=== PATIENT | male | born 1960 | race Caucasian/White ===

== ENCOUNTER 2021-02-24 15:03 | Emergency (ER) | payer MEDICAID ==
[~2021-02-24] VITALS: Ht 185.4 cm; Wt 72.6 kg
[2021-02-24] MEDS ORDERED: diphenhdrAMINE HCL 50 MG/1 ML VL ONE (15:09)
[2021-02-24 15:13] VITALS: BP 137/86
[2021-02-24] MEDS ORDERED: diphenhdrAMINE HCL 50 MG/1 ML VL IM ONE (15:15)
== END 2021-02-24 15:11 | disposition home or self-care (01) ==
LOC: ER 15:03
DX: T78.40XA Allergy, unspecified, initial encounter (principal); T50.905A Adverse effect of unspecified drugs, medicaments and biological substances, initial encounter; F17.210 Nicotine dependence, cigarettes, uncomplicated; X58.XXXA Exposure to other specified factors, initial encounter; Y92.89 Other specified places as the place of occurrence of the external cause
CPT/HCPCS: 96372; 99283; J1200

== ENCOUNTER 2021-02-24 18:40 | Emergency (ER) | payer MEDICAID ==
[~2021-02-24] VITALS: Ht 182.9 cm; Wt 83.9 kg
[2021-02-24] MEDS: LORazepam 0.5 MG TAB PO ONE (20:07)
[2021-02-24] MEDS: diphenhdrAMINE HCL 25 MG CAP PO ONE (20:07)
[2021-02-24 20:41] LABS: Basophils # (auto) 0.1 10 ^3/uL (0-0.2); Basophils % (auto) 0.8 % (0.0-2.0); Eosinophils # (auto) 0.1 10 ^3/uL (0-0.8); Eosinophils % (auto) 0.9 % (0.0-7.0); Hematocrit 32.3 % (41.0-53.0); Hemoglobin 10.3 g/dL (13.5-17.5); Lymphocytes # (auto) 2.6 10 ^3/uL (0.4-5.4); Lymphocytes % (auto) 25.3 % (10.0-50.0); Mean Corpuscular Hemoglobin 29.5 pg (28.0-32.0); Mean Corpuscular Volume 92.2 fL (80.0-100.0); Monocytes # (auto) 0.9 10 ^3/uL (0-1.3); Monocytes % (auto) 9.3 % (0.0-12.0); Neutrophils # (auto) 6.5 10 ^3/uL (1.6-8.6); Neutrophils % (auto) 63.7 % (37.0-80.0); Red Cell Distribution Width 15.1 % (11.8-14.3); White Blood Cell 10.2 10^3/uL (4.4-10.8)
[2021-02-24 20:50] LABS: Urine Bacteria NONE SEEN /hpf (None Seen); Urine Blood Negative /uL (Negative); Urine Specific Gravity 1.012 (1.001-1.035); Urine WBC 1 /hpf (0 - 3)
[2021-02-24 20:51] LABS: Alcohol, Urine < 3.0 mg/dL (0-10); Amphetamine Screen, Urine NEGATIVE (NEGATIVE); Barbiturate Scree,Urine NEGATIVE (NEGATIVE); Benzodiazephine Screen, Urine NEGATIVE (NEGATIVE); Cannabinoid Screen, Urine NEGATIVE (NEGATIVE); Cocaine Screen, Urine NEGATIVE (NEGATIVE); Opiate Scree,Urine NEGATIVE (NEGATIVE); Phencyclidine Screen, Urine NEGATIVE (NEGATIVE)
[2021-02-24 20:52] LABS: Albumin 2.8 g/dL (3.4-5.0); Calcium 8.7 mg/dL (8.5-10.1); Potassium 4.1 mmol/L (3.5-5.1)
[2021-02-24 20:54] LABS: Salicylate < 1.7 mg/dL (2.8-20.0)
[2021-02-24 20:56] LABS: Acetaminophen < 2.0 ug/mL (10-30); BUN/Creatinine Ratio 32.3; Bilirubin, Total 0.2 mg/dL (0.2-1.0); Total Protein 6.5 g/dL (6.4-8.2)
[2021-02-25 08:44] VITALS: BP 138/69
== END 2021-02-25 10:36 | disposition left against medical advice (07) ==
LOC: ER 18:40 → EDUNIT# 18:40 → EDBD 18:40 → ER 02-25 10:36
DX: R45.851 Suicidal ideations (principal); F30.9 Manic episode, unspecified; R94.31 Abnormal electrocardiogram [ECG] [EKG]; F17.210 Nicotine dependence, cigarettes, uncomplicated; Z20.822 Contact with and (suspected) exposure to COVID-19
CPT/HCPCS: 36415; 80053; 80307; 80329; 81001; 85025; 87426; 93005

== ENCOUNTER 2021-04-04 19:52 | Emergency (ER) | payer MEDICAID ==
[~2021-04-04] VITALS: Ht 185.4 cm; Wt 74.8 kg
[~2021-04-04 19:52] MED LIST: CLON0.5T PO
[2021-04-04 20:10] VITALS: BP 137/81
== END 2021-04-05 05:26 | disposition left against medical advice (07) ==
LOC: EDBD 19:52 → MERGE 20:01 → ER 20:01
DX: R45.851 Suicidal ideations (principal); R07.89 Other chest pain; F20.9 Schizophrenia, unspecified

== ENCOUNTER 2021-04-05 20:01 | Emergency (ER) | payer MEDICAID ==
[2021-04-05 20:01] VITALS: BP 146/86
== END 2021-04-06 06:03 | disposition home or self-care (01) ==
LOC: EDBD 20:01 → ER 20:06 → MERGE 20:06 → ER 04-06 06:03
DX: F20.9 Schizophrenia, unspecified (principal)

== ENCOUNTER 2021-04-10 00:45 | Emergency (ER) | payer MEDICAID ==
[~2021-04-10] VITALS: Ht 180.3 cm; Wt 72.6 kg
[2021-04-10 01:02] VITALS: BP 127/77
== END 2021-04-10 01:10 | disposition left against medical advice (07) ==
LOC: EDBD 00:45 → ER 00:45
DX: R45.851 Suicidal ideations (principal); Z53.21 Procedure and treatment not carried out due to patient leaving prior to being seen by health care provider

== ENCOUNTER 2021-04-11 21:32 | Emergency (ER) | payer MEDICAID ==
[~2021-04-11] VITALS: Ht 180.3 cm; Wt 77.1 kg
[2021-04-11 21:32] VITALS: BP 110/65
== END 2021-04-12 01:24 | disposition left against medical advice (07) ==
LOC: ER 21:33
DX: R45.851 Suicidal ideations (principal); Z53.29 Procedure and treatment not carried out because of patient's decision for other reasons

== ENCOUNTER 2021-04-24 22:28 | Emergency (ER) | payer MEDICAID ==
[~2021-04-24] VITALS: Ht 172.7 cm; Wt 72.6 kg
[2021-04-24 22:57] VITALS: BP 149/50
== END 2021-04-25 03:00 | disposition left against medical advice (07) ==
LOC: EDBD 22:28 → ER 22:30
DX: R45.851 Suicidal ideations (principal); Z53.21 Procedure and treatment not carried out due to patient leaving prior to being seen by health care provider

== ENCOUNTER 2021-06-03 03:57 | Emergency (ER) | payer MEDICAID ==
[~2021-06-03] VITALS: Ht 175.3 cm; Wt 63.5 kg
[2021-06-03 06:26] LABS: Basophils # (auto) 0.1 10 ^3/uL (0-0.2); Basophils % (auto) 1.5 % (0.0-2.0); Eosinophils # (auto) 0.1 10 ^3/uL (0-0.8); Eosinophils % (auto) 2.3 % (0.0-7.0); Hematocrit 30.5 % (41.0-53.0); Hemoglobin 9.9 g/dL (13.5-17.5); Lymphocytes # (auto) 1.7 10 ^3/uL (0.4-5.4); Lymphocytes % (auto) 31.1 % (10.0-50.0); Mean Corpuscular Hemoglobin 28.1 pg (28.0-32.0); Mean Corpuscular Hgb Conc. 32.3 g/dL (32.0-36.0); Monocytes # (auto) 0.6 10 ^3/uL (0-1.3); Monocytes % (auto) 11.8 % (0.0-12.0); Neutrophils # (auto) 2.9 10 ^3/uL (1.6-8.6); Neutrophils % (auto) 53.3 % (37.0-80.0); Nucleated Red Blood Cells % 0.1 %; Red Blood Cells 3.51 10^6/uL (4.5-5.90); Red Cell Distribution Width 17.3 % (11.8-14.3); White Blood Cell 5.4 10^3/uL (4.4-10.8)
[2021-06-03 06:29] LABS: Albumin 3.3 g/dL (3.4-5.0); BUN/Creatinine Ratio 21.7; Calcium 8.9 mg/dL (8.5-10.1); Potassium 3.8 mmol/L (3.5-5.1)
[2021-06-03 06:30] LABS: Acetaminophen < 2.0 ug/mL (10-30); Salicylate < 1.7 mg/dL (2.8-20.0)
[2021-06-03 06:31] LABS: Bilirubin, Total 0.6 mg/dL (0.2-1.0); Total Protein 6.7 g/dL (6.4-8.2)
[2021-06-03 08:29] LABS: Amphetamine Screen, Urine POSITIVE (NEGATIVE); Barbiturate Scree,Urine NEGATIVE (NEGATIVE); Benzodiazephine Screen, Urine NEGATIVE (NEGATIVE); Cannabinoid Screen, Urine NEGATIVE (NEGATIVE); Cocaine Screen, Urine NEGATIVE (NEGATIVE); Opiate Scree,Urine NEGATIVE (NEGATIVE); Phencyclidine Screen, Urine NEGATIVE (NEGATIVE)
[2021-06-03 08:49] LABS: Urine Bacteria NONE SEEN /hpf (None Seen); Urine Blood Negative /uL (Negative); Urine Specific Gravity 1.023 (1.001-1.035); Urine WBC 1 /hpf (0 - 3)
[2021-06-04 08:00] VITALS: BP 116/47
== END 2021-06-04 11:27 | disposition short-term general hospital (02) ==
LOC: EDBD 03:57 → ER 03:57
DX: R45.851 Suicidal ideations (principal); F12.10 Cannabis abuse, uncomplicated; R68.84 Jaw pain; F17.210 Nicotine dependence, cigarettes, uncomplicated; Z59.00 Homelessness unspecified
CPT/HCPCS: 36415; 70486; 80053; 80307; 80320; 80329; 81001; 85025; 85652

== ENCOUNTER 2021-06-04 13:28 | Emergency (ER) | payer MEDICAID ==
[~2021-06-04] VITALS: Ht 185.4 cm; Wt 63.5 kg
[2021-06-04 13:30] VITALS: BP 158/91
== END 2021-06-04 14:45 | disposition left against medical advice (07) ==
LOC: ER 13:28
DX: R51.9 Headache, unspecified (principal); Z53.21 Procedure and treatment not carried out due to patient leaving prior to being seen by health care provider

== ENCOUNTER 2021-06-04 18:53 | Emergency (ER) | payer MEDICAID ==
[~2021-06-04] VITALS: Ht 177.8 cm; Wt 81.6 kg
[2021-06-04 18:56] VITALS: BP 186/78
== END 2021-06-05 02:28 | disposition left against medical advice (07) ==
LOC: EDBD 18:53 → ER 18:55
DX: R25.9 Unspecified abnormal involuntary movements (principal); F17.210 Nicotine dependence, cigarettes, uncomplicated; Z79.899 Other long term (current) drug therapy

== ENCOUNTER 2022-02-26 19:15 | Emergency (ER) | payer MEDICAID ==
[~2022-02-26] VITALS: Ht 182.9 cm; Wt 63.5 kg
[2022-02-26 19:38] VITALS: BP 144/70
== END 2022-02-26 19:19 | disposition left against medical advice (07) ==
LOC: EDBD 19:15 → ER 19:19
DX: R53.1 Weakness (principal); F17.210 Nicotine dependence, cigarettes, uncomplicated
CPT/HCPCS: 80053; 81001; 83735; 83880; 84484; 85730; 93005

== ENCOUNTER 2022-03-03 08:51 | Emergency (ER) | payer MEDICAID ==
[~2022-03-03] VITALS: Ht 182.9 cm; Wt 68.1 kg
[2022-03-03 09:30] VITALS: BP 116/63
== END 2022-03-03 16:16 | disposition home or self-care (01) ==
LOC: ER 08:51 → EDBD 08:51 → ER 16:16
DX: R07.89 Other chest pain (principal); F17.210 Nicotine dependence, cigarettes, uncomplicated; Z79.899 Other long term (current) drug therapy
CPT/HCPCS: 93005

== ENCOUNTER 2022-03-17 13:42 | Emergency (ER) | payer MEDICAID ==
[~2022-03-17] VITALS: Ht 185.4 cm; Wt 72.0 kg
[2022-03-17] MEDS ORDERED: ALBUTEROL SULF 2.5 MG/0.5ML(0.5%) NEB SOLN NEB ONE (14:45)
[2022-03-17] MEDS ORDERED: IPRATROPIUM BROM 0.5 MG/2.5ML INH SOL NEB ONE (14:45)
[2022-03-17] MEDS ORDERED: methylPREDNISolone SOD SUCC 125 MG/2 ML VL IM ONE (14:45)
[2022-03-17 16:11] VITALS: BP 145/95
== END 2022-03-17 16:13 | disposition home or self-care (01) ==
LOC: EDUNIT# 13:42 → EDBD 13:42 → ER 13:42
DX: F41.9 Anxiety disorder, unspecified (principal); F17.210 Nicotine dependence, cigarettes, uncomplicated
CPT/HCPCS: 71045; 93005; 94640; 96372; 99283; J2930; J7644

== ENCOUNTER 2022-04-30 17:21 | Emergency (ER) | payer MEDICAID ==
[~2022-04-30] VITALS: Ht 170.2 cm; Wt 73.0 kg
[2022-04-30 19:07] LABS: Salicylate < 1.7 mg/dL (2.8-20.0)
[2022-04-30 19:17] LABS: Acetaminophen < 2.0 ug/mL (10-30)
[2022-04-30 19:46] LABS: Alcohol, Urine < 3.0 mg/dL (0-10); Amphetamine Screen, Urine POSITIVE (NEGATIVE); Barbiturate Scree,Urine NEGATIVE (NEGATIVE); Benzodiazephine Screen, Urine NEGATIVE (NEGATIVE); Cannabinoid Screen, Urine NEGATIVE (NEGATIVE); Cocaine Screen, Urine NEGATIVE (NEGATIVE)
[2022-04-30 19:55] LABS: Opiate Scree,Urine NEGATIVE (NEGATIVE); Phencyclidine Screen, Urine NEGATIVE (NEGATIVE)
[2022-05-01] MEDS ORDERED: OLANZapine 5 MG TAB PO SCH (22:00)
[2022-05-02 08:00] VITALS: BP 147/61
== END 2022-05-02 20:42 | disposition home or self-care (01) ==
LOC: EDUNIT# 17:21 → ER 17:21 → EDBD 17:21 → ER 05-02 20:35
DX: R45.851 Suicidal ideations (principal); F20.9 Schizophrenia, unspecified; F17.210 Nicotine dependence, cigarettes, uncomplicated; Z59.48 Other specified lack of adequate food
CPT/HCPCS: 36415; 80307; 80320; 80329

== ENCOUNTER 2022-05-13 13:15 | Emergency (ER) | payer MEDICAID ==
[~2022-05-13] VITALS: Ht 177.8 cm; Wt 70.0 kg
[2022-05-13 14:45] VITALS: BP 153/90
== END 2022-05-13 15:24 | disposition left against medical advice (07) ==
LOC: EDBD 13:15 → ER 13:15
DX: R06.02 Shortness of breath (principal); Z53.21 Procedure and treatment not carried out due to patient leaving prior to being seen by health care provider

== ENCOUNTER 2022-05-13 18:22 | Emergency (ER) | payer MEDICAID ==
[~2022-05-13] VITALS: Ht 185.4 cm; Wt 68.0 kg
[2022-05-13 19:50] LABS: Basophils # (auto) 0.1 10 ^3/uL (0-0.2); Basophils % (auto) 0.8 % (0.0-2.0); Eosinophils # (auto) 0.1 10 ^3/uL (0-0.8); Eosinophils % (auto) 1.3 % (0.0-7.0); Hematocrit 31.1 % (41.0-53.0); Hemoglobin 10.2 g/dL (13.5-17.5); Mean Corpuscular Hemoglobin 29.6 pg (28.0-32.0); Mean Corpuscular Hgb Conc. 32.7 g/dL (32.0-36.0); Mean Corpuscular Volume 90.5 fL (80.0-100.0); Monocytes # (auto) 0.9 10 ^3/uL (0-1.3); Monocytes % (auto) 12.4 % (0.0-12.0); Neutrophils # (auto) 4.6 10 ^3/uL (1.6-8.6); Neutrophils % (auto) 59.5 % (37.0-80.0); Nucleated Red Blood Cells % 0.1 %; Red Blood Cells 3.44 10^6/uL (4.5-5.90); White Blood Cell 7.7 10^3/uL (4.4-10.8)
[2022-05-13 19:56] LABS: Red Cell Distribution Width 22.2 % (11.8-14.3)
[2022-05-13 19:58] LABS: INR 0.95 (0.9-1.15); Partial Thromboplastin Time 24.9 sec (24.6-33.4)
[2022-05-13 20:05] LABS: Albumin 3.6 g/dL (3.4-5.0); BUN/Creatinine Ratio 25.5; Calcium 9.8 mg/dL (8.5-10.1); Potassium 4.1 mmol/L (3.5-5.1)
[2022-05-13 20:06] LABS: Salicylate < 1.7 mg/dL (2.8-20.0)
[2022-05-13 20:08] LABS: Bilirubin, Total 0.3 mg/dL (0.2-1.0); Total Protein 7.7 g/dL (6.4-8.2)
[2022-05-13 20:33] LABS: Acetaminophen < 2.0 ug/mL (10-30)
[2022-05-14] MEDS ORDERED: NICOTINE 21MG/24 HR TOPICAL PATCH TD ONE (00:45)
[2022-05-14 08:25] VITALS: BP 135/68
[2022-05-14 08:28] LABS: Urine Bacteria NONE SEEN /hpf (None Seen); Urine Blood Negative /uL (Negative); Urine Specific Gravity 1.022 (1.001-1.035); Urine WBC 2 /hpf (0 - 3)
[2022-05-14 08:32] LABS: Alcohol, Urine < 3.0 mg/dL (0-10); Amphetamine Screen, Urine POSITIVE (NEGATIVE); Barbiturate Scree,Urine NEGATIVE (NEGATIVE); Benzodiazephine Screen, Urine NEGATIVE (NEGATIVE); Cannabinoid Screen, Urine NEGATIVE (NEGATIVE); Cocaine Screen, Urine NEGATIVE (NEGATIVE); Phencyclidine Screen, Urine NEGATIVE (NEGATIVE)
[2022-05-14 08:40] LABS: Opiate Scree,Urine NEGATIVE (NEGATIVE)
== END 2022-05-14 15:56 | disposition home or self-care (01) ==
LOC: EDBD 18:22 → ER 18:22
DX: R45.851 Suicidal ideations (principal); F17.210 Nicotine dependence, cigarettes, uncomplicated; F20.9 Schizophrenia, unspecified; Z20.822 Contact with and (suspected) exposure to COVID-19
CPT/HCPCS: 36415; 71045; 80053; 80307; 80320; 80329; 81001; 83880; 84484; 85025; 85379; 85610; 85730; 87426; 93005

== ENCOUNTER 2022-05-14 18:09 | Emergency (ER) | payer MEDICAID ==
[~2022-05-14] VITALS: Ht 170.2 cm; Wt 65.0 kg
[2022-05-14 18:09] VITALS: BP 117/88
[2022-05-14 19:11] LABS: Basophils # (auto) 0.2 10 ^3/uL (0-0.2); Basophils % (auto) 2.5 % (0.0-2.0); Eosinophils # (auto) 0.1 10 ^3/uL (0-0.8); Eosinophils % (auto) 1.8 % (0.0-7.0); Hematocrit 31.8 % (41.0-53.0); Lymphocytes # (auto) 2.3 10 ^3/uL (0.4-5.4); Mean Corpuscular Hemoglobin 29.4 pg (28.0-32.0); Mean Corpuscular Hgb Conc. 31.5 g/dL (32.0-36.0); Mean Corpuscular Volume 93.3 fL (80.0-100.0); Monocytes # (auto) 0.8 10 ^3/uL (0-1.3); Monocytes % (auto) 10.6 % (0.0-12.0); Neutrophils # (auto) 4.2 10 ^3/uL (1.6-8.6); Neutrophils % (auto) 55.1 % (37.0-80.0); Nucleated Red Blood Cells % 0.1 %; Red Blood Cells 3.41 10^6/uL (4.5-5.90); White Blood Cell 7.7 10^3/uL (4.4-10.8)
[2022-05-14 19:19] LABS: Red Cell Distribution Width 22.7 % (11.8-14.3)
[2022-05-14 19:26] LABS: Potassium 4.6 mmol/L (3.5-5.1)
[2022-05-14 19:33] LABS: Albumin 3.5 g/dL (3.4-5.0); BUN/Creatinine Ratio 30.6; Bilirubin, Total 0.3 mg/dL (0.2-1.0); Total Protein 6.9 g/dL (6.4-8.2)
[2022-05-15] MEDS ORDERED: HYDROcodone-ACET 5/325MG TAB PO ONE (03:45)
== END 2022-05-15 05:24 | disposition home or self-care (01) ==
LOC: EDUNIT# 18:09 → ER 18:09 → EDBD 18:09 → ER 05-15 05:24
DX: R07.89 Other chest pain (principal); F41.9 Anxiety disorder, unspecified; F32.9 Major depressive disorder, single episode, unspecified; F17.210 Nicotine dependence, cigarettes, uncomplicated; F15.90 Other stimulant use, unspecified, uncomplicated; Z59.00 Homelessness unspecified
CPT/HCPCS: 36415; 80053; 84484; 85025; 93005

== ENCOUNTER 2022-05-15 14:43 | Emergency (ER) | payer MEDICAID | END 2022-05-15 15:20 | disposition left against medical advice (07) | LOC: ER 14:43 | DX: Z00.8 Encounter for other general examination (principal); Z53.21 Procedure and treatment not carried out due to patient leaving prior to being seen by health care provider ==

== ENCOUNTER 2022-05-15 15:46 | Emergency (ER) | payer MEDICAID ==
[~2022-05-15] VITALS: Ht 172.7 cm; Wt 72.0 kg
[2022-05-15 16:48] LABS: Salicylate < 1.7 mg/dL (2.8-20.0)
[2022-05-15 16:49] LABS: Acetaminophen < 2.0 ug/mL (10-30)
[2022-05-15 17:48] LABS: Alcohol, Urine < 3.0 mg/dL (0-10); Amphetamine Screen, Urine POSITIVE (NEGATIVE); Barbiturate Scree,Urine NEGATIVE (NEGATIVE); Benzodiazephine Screen, Urine NEGATIVE (NEGATIVE); Cannabinoid Screen, Urine NEGATIVE (NEGATIVE); Cocaine Screen, Urine NEGATIVE (NEGATIVE)
[2022-05-15 17:56] LABS: Opiate Scree,Urine NEGATIVE (NEGATIVE); Phencyclidine Screen, Urine NEGATIVE (NEGATIVE)
[2022-05-15] MEDS ORDERED: OLANZapine 5 MG TAB PO SCH (22:00)
[2022-05-16 12:30] VITALS: BP 154/90
== END 2022-05-16 12:35 | disposition short-term general hospital (02) ==
LOC: EDBD 15:46 → ER 15:46
DX: F20.9 Schizophrenia, unspecified (principal); F15.10 Other stimulant abuse, uncomplicated; F17.210 Nicotine dependence, cigarettes, uncomplicated; F41.9 Anxiety disorder, unspecified; F32.9 Major depressive disorder, single episode, unspecified; Z59.00 Homelessness unspecified; Z79.899 Other long term (current) drug therapy
CPT/HCPCS: 36415; 80307; 80320; 80329

== ENCOUNTER 2022-05-27 15:57 | Emergency (ER) | payer MEDICAID ==
[~2022-05-27] VITALS: Ht 185.4 cm; Wt 72.8 kg
[2022-05-27] MEDS ORDERED: DexAMETHasone SOD PHOS 4 MG/1ML SDV INJ IM ONE (17:30)
[2022-05-27 23:03] VITALS: BP 158/61
== END 2022-05-27 18:05 | disposition home or self-care (01) ==
LOC: EDBD 15:57 → ER 16:02
DX: K14.8 Other diseases of tongue (principal); F17.210 Nicotine dependence, cigarettes, uncomplicated; Z59.00 Homelessness unspecified; Z79.899 Other long term (current) drug therapy

== ENCOUNTER 2022-06-21 17:17 | Emergency (ER) | payer MEDICAID ==
[~2022-06-21] VITALS: Ht 185.4 cm; Wt 63.0 kg
[2022-06-21 18:31] LABS: Basophils # (auto) 0.1 10 ^3/uL (0-0.2); Basophils % (auto) 0.9 % (0.0-2.0); Eosinophils # (auto) 0.1 10 ^3/uL (0-0.8); Eosinophils % (auto) 1.6 % (0.0-7.0); Hematocrit 34.6 % (41.0-53.0); Hemoglobin 11.4 g/dL (13.5-17.5); Lymphocytes # (auto) 2.3 10 ^3/uL (0.4-5.4); Lymphocytes % (auto) 28.6 % (10.0-50.0); Mean Corpuscular Hemoglobin 28.6 pg (28.0-32.0); Mean Corpuscular Hgb Conc. 32.8 g/dL (32.0-36.0); Mean Corpuscular Volume 87.3 fL (80.0-100.0); Monocytes # (auto) 0.8 10 ^3/uL (0-1.3); Monocytes % (auto) 9.6 % (0.0-12.0); Neutrophils # (auto) 4.8 10 ^3/uL (1.6-8.6); Neutrophils % (auto) 59.3 % (37.0-80.0); Nucleated Red Blood Cells % 0.1 %; Red Blood Cells 3.97 10^6/uL (4.5-5.90); White Blood Cell 8.1 10^3/uL (4.4-10.8)
[2022-06-21 18:34] LABS: Red Cell Distribution Width 20.5 % (11.8-14.3)
[2022-06-21 18:50] LABS: Albumin 3.3 g/dL (3.4-5.0); Anion Gap 3 (5-15); Blood Urea Nitrogen 22 mg/dL (7-18); Calcium 9.4 mg/dL (8.5-10.1); Carbon Dioxide 29 mmol/L (21-32); Chloride 103 mmol/L (98-107); Glucose 107 mg/dL (74-106); Potassium 3.7 mmol/L (3.5-5.1); Sodium 135 mmol/L (136-145)
[2022-06-21 18:56] LABS: Alanine Aminotransferase 22 U/L (16-61); Alkaline Phosphatase 68 U/L (45-117); Aspartate Aminotransferase 18 U/L (15-37); Bilirubin, Total 0.3 mg/dL (0.2-1.0); Blood Alcohol < 3.0 mg/dL (0-5); GFR African American 92 mL/min; GFR Non-African American 76 mL/min; Total Protein 7.7 g/dL (6.4-8.2)
[2022-06-21 19:09] LABS: Urine Bacteria NONE SEEN /hpf (None Seen); Urine Blood Negative /uL (Negative); Urine Specific Gravity 1.015 (1.001-1.035); Urine WBC <1 /hpf (0 - 3)
[2022-06-21 19:27] LABS: Alcohol, Urine < 3.0 mg/dL (0-10); Barbiturate Scree,Urine NEGATIVE (NEGATIVE); Cannabinoid Screen, Urine NEGATIVE (NEGATIVE); Cocaine Screen, Urine NEGATIVE (NEGATIVE); Opiate Scree,Urine NEGATIVE (NEGATIVE); Phencyclidine Screen, Urine NEGATIVE (NEGATIVE)
[2022-06-21 19:34] LABS: Amphetamine Screen, Urine POSITIVE (NEGATIVE); Benzodiazephine Screen, Urine NEGATIVE (NEGATIVE)
[2022-06-22] MEDS ORDERED: OLANZapine 5 MG TAB PO ONE (18:00)
[2022-06-23 14:29] VITALS: BP 133/68
== END 2022-06-23 16:00 | disposition short-term general hospital (02) ==
LOC: ER 17:17
DX: R45.851 Suicidal ideations (principal); F20.9 Schizophrenia, unspecified; F41.9 Anxiety disorder, unspecified; F32.9 Major depressive disorder, single episode, unspecified; F12.10 Cannabis abuse, uncomplicated; F15.10 Other stimulant abuse, uncomplicated; Z59.00 Homelessness unspecified
CPT/HCPCS: 36415; 80053; 80307; 80320; 81001; 85025

== ENCOUNTER 2023-02-09 11:25 | Emergency (ER) | payer MEDICAID ==
[~2023-02-09] VITALS: Ht 185.4 cm; Wt 61.0 kg
[~2023-02-09 11:25] MED LIST changes: +CLON-1003 PO; -CLON0.5T PO
[2023-02-09 11:35] VITALS: BP 110/76; PULSE 108; RESP 18; TEMP 97.9; O2SAT 96
[2023-02-09] MEDS ORDERED: cefTRIAXone SOD 1,000 MG VL IM ONE (14:00)
[2023-02-09] MEDS ORDERED: methylPREDNISolone SOD SUCC 125 MG/2 ML VL IM ONE (14:00)
[2023-02-09] MEDS ORDERED: METH4PAK PO (14:17)
[2023-02-09] MEDS ORDERED: CEPH500C PO (14:17)
== END 2023-02-09 14:36 | disposition home or self-care (01) ==
LOC: ER 11:25
DX: J03.90 Acute tonsillitis, unspecified (principal); F17.210 Nicotine dependence, cigarettes, uncomplicated; F15.10 Other stimulant abuse, uncomplicated; Z59.00 Homelessness unspecified
CPT/HCPCS: 96372; 99284; J0696; J2930

== ENCOUNTER 2023-08-10 05:25 | Emergency (ER) | payer MEDICAID ==
[~2023-08-10] VITALS: Ht 177.8 cm; Wt 70.0 kg
[~2023-08-10 05:25] MED LIST changes: +CEPH500C PO; +METH4PAK PO
[2023-08-10 05:29] VITALS: BP 170/89; RESP 18; TEMP 98.1; O2SAT 98
[2023-08-10 05:30] VITALS: PULSE 87
[2023-08-10] MEDS: methylPREDNISolone SOD SUCC 125 MG/2 ML VL IM ONE (06:49)
== END 2023-08-10 07:08 | disposition home or self-care (01) ==
LOC: EDBD 05:25 → ER 05:25 → EDUNIT# 05:25 → ER 07:07
DX: K13.79 Other lesions of oral mucosa (principal); R22.0 Localized swelling, mass and lump, head; F41.9 Anxiety disorder, unspecified; F32.9 Major depressive disorder, single episode, unspecified; F20.9 Schizophrenia, unspecified; F17.210 Nicotine dependence, cigarettes, uncomplicated; F15.90 Other stimulant use, unspecified, uncomplicated; Z59.00 Homelessness unspecified; Z79.899 Other long term (current) drug therapy
CPT/HCPCS: 93005; 96372; 99283; J2919

== ENCOUNTER 2023-08-24 22:18 | Emergency (ER) | payer MEDICAID ==
[~2023-08-24] VITALS: Ht 180.3 cm; Wt 90.0 kg
[2023-08-24 22:21] VITALS: BP 131/85
[2023-08-24] MEDS: DexAMETHasone SOD PHOS 10MG/1ML VIAL INJ IM ONE (22:56)
[2023-08-24 23:03] VITALS: PULSE 98; RESP 16; O2SAT 96
== END 2023-08-24 23:04 | disposition home or self-care (01) ==
LOC: ER 22:18 → EDBD 22:18 → ER 23:04
DX: K14.8 Other diseases of tongue (principal)
CPT/HCPCS: 96372; 99283; J1100

== ENCOUNTER 2023-09-01 00:32 | Emergency (ER) | payer MEDICAID ==
[~2023-09-01] VITALS: Ht 165.1 cm; Wt 55.0 kg
[2023-09-01 01:06] LABS: Basophils # (auto) 0.1 10 ^3/uL (0-0.2); Basophils % (auto) 1.1 % (0.0-2.0); Eosinophils # (auto) 0.2 10 ^3/uL (0-0.8); Eosinophils % (auto) 1.6 % (0.0-7.0); Hematocrit 34.3 % (41.0-53.0); Lymphocytes # (auto) 3.1 10 ^3/uL (0.4-5.4); Lymphocytes % (auto) 22.8 % (10.0-50.0); Mean Corpuscular Hemoglobin 28.8 pg (28.0-32.0); Mean Corpuscular Volume 89.8 fL (80.0-100.0); Monocytes % (auto) 14.3 % (0.0-12.0); Neutrophils # (auto) 8.2 10 ^3/uL (1.6-8.6); Neutrophils % (auto) 60.2 % (37.0-80.0); Red Blood Cells 3.81 10^6/uL (4.5-5.90); Red Cell Distribution Width 19.6 % (11.8-14.3); White Blood Cell 13.7 10^3/uL (4.4-10.8)
[2023-09-01 01:13] LABS: Chloride 107 mmol/L (98-107); Potassium 3.8 mmol/L (3.5-5.1); Sodium 140 mmol/L (136-145)
[2023-09-01 01:14] LABS: Anion Gap 6 (5-15); Calcium 10.1 mg/dL (8.7-10.4); Carbon Dioxide 27 mmol/L (20-30)
[2023-09-01 01:19] LABS: BUN/Creatinine Ratio 14.7 (10.0-20.0); Blood Urea Nitrogen 19 mg/dL (9-23); Glucose 109 mg/dL (74-106)
[2023-09-01 01:21] LABS: Acetaminophen < 2.0 UG/ML (10.0-20.0)
[2023-09-01 01:32] LABS: Salicylate < 3.0 mg/dL (2.8-20.0)
[2023-09-01 02:56] VITALS: PULSE 82; RESP 18; O2SAT 99
[2023-09-01 09:59] VITALS: BP 109/65; RESP 18; TEMP 98.8; O2SAT 97
== END 2023-09-01 10:48 | disposition home or self-care (01) ==
LOC: ER 00:32 → EDBD 00:32 → ER 10:48
DX: R45.851 Suicidal ideations (principal); F41.9 Anxiety disorder, unspecified; F32.A Depression, unspecified; F20.9 Schizophrenia, unspecified; F17.210 Nicotine dependence, cigarettes, uncomplicated; F15.10 Other stimulant abuse, uncomplicated; Z59.00 Homelessness unspecified
CPT/HCPCS: 36415; 80048; 80320; 80329; 85025

== ENCOUNTER 2023-10-27 07:20 | Emergency (ER) | payer MEDICAID ==
[~2023-10-27] VITALS: Ht 182.9 cm; Wt 61.4 kg
[2023-10-27 08:11] VITALS: BP 150/84; PULSE 84; RESP 17; TEMP 97.5; O2SAT 98
[2023-10-27] MEDS: diphenhdrAMINE HCL 50 MG/1 ML VL IM ONE (08:29)
[2023-10-27] MEDS: methylPREDNISolone SOD SUCC 125 MG/2 ML VL IM ONE (08:29)
== END 2023-10-27 08:36 | disposition home or self-care (01) ==
LOC: EDBD 07:20 → EDUNIT# 07:20 → ER 07:20
DX: R25.9 Unspecified abnormal involuntary movements (principal); F41.9 Anxiety disorder, unspecified; F32.9 Major depressive disorder, single episode, unspecified; F20.9 Schizophrenia, unspecified; F17.210 Nicotine dependence, cigarettes, uncomplicated; F15.90 Other stimulant use, unspecified, uncomplicated; Z59.00 Homelessness unspecified; Z79.899 Other long term (current) drug therapy
CPT/HCPCS: 96372; 99284; J1200; J2919

== ENCOUNTER 2023-10-27 22:04 | Emergency (ER) | payer MEDICAID ==
[~2023-10-27] VITALS: Ht 185.4 cm; Wt 77.2 kg
[2023-10-27 22:15] VITALS: BP 140/72; PULSE 96; RESP 18; O2SAT 97
[2023-10-28] MEDS: KETOROLAC TROMETH 30 MG/ML 1ML VIAL IM ONE (00:08)
[2023-10-28] MEDS: DexAMETHasone SOD PHOS 10MG/1ML VIAL INJ IM ONE (00:09)
== END 2023-10-28 00:27 | disposition home or self-care (01) ==
LOC: EDBD 22:04 → ER 22:04
DX: G24.01 Drug induced subacute dyskinesia (principal); F17.210 Nicotine dependence, cigarettes, uncomplicated; F15.10 Other stimulant abuse, uncomplicated; F20.9 Schizophrenia, unspecified; F41.9 Anxiety disorder, unspecified; F32.9 Major depressive disorder, single episode, unspecified; Z59.00 Homelessness unspecified
CPT/HCPCS: 96372; 99284; J1100; J1885

== ENCOUNTER 2024-05-02 20:56 | Inpatient (IN) | payer MEDICAID ==
[~2024-05-02] VITALS: Ht 185.4 cm; Wt 50.7 kg
--- NOTE | 2024-05-02 21:43 | ED.PDOC ---
History of Present Illness HPI Comments 63-year-old male came to emergency room with granddaughter for wound check. Patient is homeless, and has history of schizophrenia, suicide ideations, and methamphetamine abuse. Patient accompanied by grand daughter, who claims that she takes care of the patient, despite the patient wandering off all the time. She last saw the patient at [facility], and was surprised why the patient had a g-tube inserted. Patient pulled out the g-tube earlier and patient was brought to [facility] however they said they couldn't take care of the patients issues with the g-tube and was advised to go seek help somewhere else. Both granddaughter and patient are very poor historians Chief Complaint: Wound check Time Seen by MD: 21:42 Primary Care Provider: NONE Reviewed Notes: Nurses Notes Allergies: Coded Allergies: NO KNOWN ALLERGIES (Unverified , 02/24/21) Home Meds Active Scripts Methylprednisolone (Medrol Dosepak) 4 Mg Jarrell, 4 MG PO UD, #21 TAB UAD Prov:TRINIDAD ALICEA 08/10/23 Cephalexin Monohydrate (Cephalexin) 500 Mg Cap, 1 CAP PO TID, #21 CAP Prov:TRINIDAD ALICEA 02/09/23 Reported Medications Clonazepam (Klonopin) 0.5 Mg Tab, 1 TAB PO DAILY, #30 TAB 12/25/13 Information Source: Patient, Relative Mode of Arrival: Wheelchair Severity: Moderate Timing: Hours Duration: Since onset Past Medical History PAST MEDICAL HISTORY: Anxiety, Depression, Schizophrenia Surgical History: Denies all surgeries Family History Family History: Reviewed,noncontributory to illness Social History Smoker: Cigarettes Alcohol: Occasionally Drugs: Methamphetamine Lives In: Homeless Constitutional: denies: chills, diaphoresis, fatigue, fever, malaise, sweats, weakness, others EENTM: denies: blurred vision, double vision, ear bleeding, ear discharge, ear drainage, ear pain, ear ringing, eye pain, eye redness, hearing loss, mouth pa in, mouth swelling, nasal discharge, nose bleeding, nose congestion, nose pain, photophobia, tearing, throat pain, throat swelling, voice changes, others Respiratory: denies: cough, hemoptysis, orthopnea, SOB at rest, shortness of breath, SOB with excertion, stridor, wheezing, others Cardiovascular: denies: chest pain, dizzy spells, diaphoresis, Dyspnea on exertion, edema, irregular heart beat, left arm pain, lightheadedness, palpitations, PND, syncope, others Gastrointestinal: denies: abdomen distended, abdominal pain, blood streaked bowels, constipated, diarrhea, dysphagia, difficulty swallowing, hematemesis, melena, nausea, poor appetite, poor fluid intake, rectal bleeding, rectal pain, vomiting, others Genitourinary: denies: burning, dysuria, flank pain, frequency, hematuria, incontinence, penile discharge, penile sore, pain, testicle pain, testicle swelling, urgency, others Neurological: denies: dizziness, fainting, headache, left sided numbness, left sided weakness, numbness, paresthesia, pre-existing deficit, right sided numbness, right sided weakness, seizure, speech problems, tingling, tremors, weakness, others Musculoskeletal: denies: back pain, gout, joint pain, joint swelling, muscle pain, muscle stiffness, neck pain, others Integumetry: denies: bruises, change in color, change in hair/nails, dryness, laceration, lesions, lumps, rash, wounds, others Allergic/Immunocompromised: denies: Difficulty Healing, Frequent Infections, Hives, Itching, others Hematologic/Lymphatic: denies: anemia, blood clots, easy bleeding, easy bruising, swollen glands, others Endocrine: denies: excessive hunger, excessive sweating, excessive thirst, excessive urination, flushing, intolerance to cold, intolerance to heat, unexplained weight gain, unexplained weight loss, others Psychiatric: denies: anxiety, bipolar disorder, depression, hopeless, panic disorder, schizophrenia, sleepless, suicidal, others Physical Exam General Appearance: No Apparent Distress, Normal HEENT: Normal ENT Inspection, Pharynx Normal, TMs Normal Neck: Full Range of Motion, Non-Tender, Normal, Normal Inspection Respiratory: Chest Non-Tender, Lungs Clear, No Accessory Muscle Use, No Respiratory Distress, Normal Breath Sounds Cardiovascular: No Edema, No JVD, No Murmur, No Gallop, Normal Peripheral Pulses, Regular Rate/Rhythm Breast Exam: Deferred Gastrointestinal: No Organomegaly, Non Tender, No Pulsatile Mass, Normal Bowel Sounds, Soft, Other (Dislodged G-tube) Genitalia: Deferred Pelvic: Deferred Rectal: Deferred Extremities: No calf tenderness, Normal capillary refill, Normal inspection, Normal range of motion, Non-tender, No pedal edema Musculoskeletal : Apperance: Normal Neurologic: Alert, gm II-XII nml as Tested, No Motor Deficits, Normal Affect, Normal Mood, No Sensory Deficits Cerebellar Function: Normal Reflexes: Normal Skin: Dry, Normal Color, Warm Lymphatic: No Adenopathy Was a procedure done? Was a procedure done?: No Differential Dx Considerations may include: Schizophrenia, dislodged G-tube, sepsis, substance abuse X-Ray, Labs, Meds, VS Vital Signs Date Time Temp Pulse Resp B/P (MAP) Pulse Ox O2 Delivery O2 Flow Rate FiO2 05/02/24 21:18 101.0 99 20 121/74 (90) 92 Lab Test 05/02/24 22:32 05/02/24 21:42 Range/Units Troponin I High Sensitivity Pending 12 </=54 ng/L White Blood Count 12.3 H 4.4-10.8 10^3/uL Red Blood Count 3.55 L 4.5-5.90 10^6/uL Hemoglobin 10.8 L 13.5-17.5 g/dL Hematocrit 32.7 L 41.0-53.0 % Mean Corpuscular Volume 92.0 80.0-100.0 fL Mean Corpuscular Hemoglobin 30.5 28.0-32.0 pg Mean Corpuscular Hemoglobin Concent 33.1 32.0-36.0 g/dL Red Cell Distribution Width 19.3 H 11.8-14.3 % Platelet Count 246 140-450 10^3/uL Mean Platelet Volume 7.2 6.9-10.8 fL Neutrophils (%) (Auto) 76.5 37.0-80.0 % Lymphocytes (%) (Auto) 15.5 10.0-50.0 % Monocytes (%) (Auto) 7.3 0.0-12.0 % Eosinophils (%) (Auto) 0.4 0.0-7.0 % Basophils (%) (Auto) 0.3 0.0-2.0 % Neutrophils # (Auto) 9.4 H 1.6-8.6 10 ^3/uL Lymphocytes # (Auto) 1.9 0.4-5.4 10 ^3/uL Monocytes # (Auto) 0.9 0-1.3 10 ^3/uL Eosinophils # (Auto) 0.1 0-0.8 10 ^3/uL Basophils # (Auto) 0 0-0.2 10 ^3/uL Nucleated Red Blood Cells 0.0 % Sodium Level 137 136-145 mmol/L Potassium Level 4.2 3.5-5.1 mmol/L Chloride Level 105 98-107 mmol/L Carbon Dioxide Level 24 20-31 mmol/L Anion Gap 8 5-15 Blood Urea Nitrogen 27 H 9-23 mg/dL Creatinine 1.09 0.700-1.30 mg/dL Glomerular Filtration Rate Calc 76 >90 mL/min BUN/Creatinine Ratio 24.8 H 10.0-20.0 Serum Glucose 95 74-106 mg/dL Lactic Acid Level 1.4 0.4-2.0 mmol/L Calcium Level 10.0 8.7-10.4 mg/dL Total Bilirubin 0.5 0.2-1.0 mg/dL Aspartate Amino Transferase (AST) 45 H 13-40 U/L Alanine Aminotransferase (ALT) 41 H 7-40 U/L Alkaline Phosphatase 102 46-116 U/L B-Type Natriuretic Peptide 78.59 0-100 pg/mL Total Protein 7.0 5.7-8.2 g/dL Albumin 3.8 3.2-4.8 g/dL Current Medications Medications (Trade) Dose Ordered Sig/Katie Route Start Time Stop Time Status Last Admin Sodium Chloride 1,000 ml @ 1,000 mls/hr Q1H ONCE IV 05/02/24 21:45 05/02/24 22:44 DC 05/02/24 23:00 Time of 1ST Reevaluation: 21:32 Reevaluation 1ST: Unchanged Patient Education/Counseling: Diagnosis, Treatment Family Education/Counseling: Diagnosis, Treatment Departure 1 Departure Time of Disposition: 23:04 (Patient with worsening altered mental status. Patient with signs of infection. We will cover patient empirically with antibiotics we will not give the full fluid bolus as patient has a component of heart failure. And we will admit patient for further workup.) Impression: Primary Impression: Acute metabolic encephalopathy Additional Impressions: Fever Qualified Codes: R50.9 - Fever, unspecified Generalized weakness Disposition: ADMITTED INPATIENT Admit to: Med Surg Condition: Serious Critical Care Note Critical Care Time?: Yes Critical care comment: Altered mental status Authorized and Performed by: David Noriega MD Total critical care time: Approximately 38 minutes Due to a high probability of clinically significant, life threatening deterioration, the patient required my highest level of preparedness to intervene emergently and I personally spent this critical care time directly and personally managing the patient. This critical care time included obtaining a history; examining the patient; pulse oximetry; ordering and review of studies; arranging urgent treatment with development of a management plan; evaluation of patient's response to treatment; frequent reassessment; and, discussions with other providers. This critical care time was performed to assess and manage the high probability of imminent, life-threatening deterioration that could result in multi-organ failure. It was exclusive of separately billable procedures and treating other patients and teaching time. Please see my other sections and the rest of the note for further information on patient assessment and treatment. Stability Stability form required: No Heart Score Heart Score: Heart Score Response (Comments) Value History N/A 0 EKG N/A 0 Age N/A 0 Risk Factors N/A 0 Troponin N/A 0 Total 0 I personally scribed for DAVID NORIEGA MD ([email or web address]) on 05/02/24 at 21:43. Electronically submitted by Geo Zhang ([facility]). DAVID NORIEGA MD May 02, 2024 21:43
[2024-05-02] MEDS: ONDANSETRON HCL 4 MG/2 ML VIAL IV ONE (21:45)
--- NOTE | 2024-05-02 21:55 | DVH ---
EXAM: XY CHEST PORTABLE CLINICAL HISTORY: sepsis TECHNIQUE: Single AP view of the chest WID: COMPARISON: CHEST PORTABLE on DOS: 05/13/22 FINDINGS: Lines and tubes: None Chest: The heart size and pulmonary vasculature is within normal limits. Calcified plaque projects over the aortic arch. Hyperexpansion of the lungs. Diffuse interstitial prominence in the lungs. No pneumothorax or pleural effusion. The osseous structures are grossly intact. There are healed posterior left rib fracture deformities IMPRESSION: 1. Hyperexpansion of the lungs which could be COPD or emphysema. 2. Diffuse interstitial prominence in the lungs. DDX includes fibrosis/ scarring, atypical infection, or interstitial edema
[2024-05-02 22:24] LABS: Basophils # (auto) 0 10 ^3/uL (0-0.2); Basophils % (auto) 0.3 % (0.0-2.0); Eosinophils # (auto) 0.1 10 ^3/uL (0-0.8); Eosinophils % (auto) 0.4 % (0.0-7.0); Hematocrit 32.7 % (41.0-53.0); Hemoglobin 10.8 g/dL (13.5-17.5); Lymphocytes # (auto) 1.9 10 ^3/uL (0.4-5.4); Lymphocytes % (auto) 15.5 % (10.0-50.0); Mean Corpuscular Hemoglobin 30.5 pg (28.0-32.0); Mean Corpuscular Hgb Conc. 33.1 g/dL (32.0-36.0); Monocytes # (auto) 0.9 10 ^3/uL (0-1.3); Monocytes % (auto) 7.3 % (0.0-12.0); Neutrophils # (auto) 9.4 10 ^3/uL (1.6-8.6); Neutrophils % (auto) 76.5 % (37.0-80.0); Platelet Count (auto) 246 10^3/uL (140-450); Red Blood Cells 3.55 10^6/uL (4.5-5.90); Red Cell Distribution Width 19.3 % (11.8-14.3); White Blood Cell 12.3 10^3/uL (4.4-10.8)
[2024-05-02 22:26] LABS: Albumin 3.8 g/dL (3.2-4.8); Alkaline Phosphatase 102 U/L (46-116); Anion Gap 8 (5-15); BUN/Creatinine Ratio 24.8 (10.0-20.0); Bilirubin, Total 0.5 mg/dL (0.2-1.0); Carbon Dioxide 24 mmol/L (20-31); Chloride 105 mmol/L (98-107); Glucose 95 mg/dL (74-106); Potassium 4.2 mmol/L (3.5-5.1); Sodium 137 mmol/L (136-145)
[2024-05-02 22:27] LABS: Alanine Aminotransferase 41 U/L (7-40); Aspartate Aminotransferase 45 U/L (13-40); Blood Urea Nitrogen 27 mg/dL (9-23)
[2024-05-02 23:00] VITALS: PULSE 89; RESP 13; O2SAT 98
[2024-05-02] MEDS: SODIUM CHLORIDE 0.9% 1,000 ML IV ONE (23:00)
[2024-05-02] MEDS: VANCOMYCIN 1GM/250ML KIT 200 ML IV ONE (23:38)
[2024-05-03] MEDS: CEFEPIME 2GM/50ML NS 50 ML IV ONE (00:42)
[2024-05-03] MEDS: LORazepam 2MG/ML-1ML VIAL IV ONE (02:02)
[2024-05-03] MEDS ORDERED: DOCUSATE SOD 100 MG CAP PO PRN (05:30)
[2024-05-03] MEDS ORDERED: VANCOMYCIN PER PHARMACY 0 MG IV SCH (05:30)
[2024-05-03] MEDS ORDERED: IBUPROFEN 600 MG TAB PO PRN (05:30)
[2024-05-03] MEDS ORDERED: NITROGLYCERIN 0.4 MG SL TAB SL PRN (05:30)
[2024-05-03] MEDS ORDERED: ONDANSETRON HCL 4 MG/2 ML VIAL IV PRN (05:30)
[2024-05-03] MEDS ORDERED: HYDROcodone-ACET 5/325MG TAB PO PRN (05:30)
--- NOTE | 2024-05-03 05:34 | DVHHP2 ---
History of Present Illness Reason for Visit: Acute metabolic encephalopathy History of Present Illness Patient is a 63-year-old male with past medical history of depression, schizophrenia, and anxiety presented to [facility] ED with granddaughter for evaluation of wound check..Granddaughter claims that she takes care of the patient, despite the patient wandering off all the time. She last saw the patient at [facility], and was surprised why the patient had a g- tube inserted. Patient pulled out the g-tube earlier and patient was brought to [facility]. However, they couldn't take care of the patients issues with the g-tube and was advised to go seek help somewhere else. Patient was seen and evaluated in the ED, laboratory data shows WBC 12.3, hemoglobin 10.8, hematocrit 32.7, platelets 246, sodium 137, potassium 4.2, BUN 27, creatinine 1.09, GFR 76, glucose 95, AST 45, ALT 41, troponin 12. GI will follow the patient regarding dislodged G-tube. Patient was started on IV antibiotic regimen cefepime, please see medication orders section in the computer. On my assessment, patient denies chest pain, no headache, no dizziness, no nausea, no vomiting, no fever, no chills. Patient was admitted for further evaluation and medical management. Past Medical History Anxiety, Depression, Schizophrenia Past Surgical History Denies all surgeries Family History Reviewed, noncontributory to the management of this case. Past Social History The patient is homeless, smokes cigarettes, drinks alcohol occasionally, uses methamphetamine. Review of Systems Constitutional: Yes: Weakness; No: Fever, Chills, Sweats, Malaise, Other Eyes: No: Pain, Vision change, Conjunctivae inflammation, Eyelid inflammation, Other, Redness ENT: No: Ear pain, Ear discharge, Nose pain, Nose discharge, Nose congestion, Mouth pain, Mouth swelling, Throat pain, Throat swelling, Other Respiratory: No: Cough, Dry, Shortness of breath, SOB with excertion, Wheezing, Hemoptysis, Pleuritic Pain, Sputum, Wheezing, Other Cardiovascular: No: Chest Pain, Palpitations, Orthopnea, Paroxysmal Noc. Dyspnea, Edema, Lt Headedness, Other Gastrointestinal: Other (Dislodged G-tube); No: Nausea, Vomiting, Abdominal Pain, Diarrhea, Constipation, Melena, Hematochezia Genitourinary: No Dysuria, No Frequency, No Incontinence, No Hematuria, No Retention, No Other Musculoskeletal: No: other, neck pain, shoulder pain, arm pain, back pain, hand pain, leg pain, foot pain Skin: Other (Wound); No: Rash, Lesions, Jaundice, Bruising Neurological: No: Weakness, Numbness, Incoordination, Change in speech, Confusion, Seizures, Other Allergies: Coded Allergies: NO KNOWN ALLERGIES (Unverified , 02/24/21) Exam Vital Signs Vital Signs Date Time Temp Pulse Resp B/P (MAP) Pulse Ox O2 Delivery O2 Flow Rate FiO2 05/03/24 04:00 74 20 115/76 (89) 96 05/02/24 23:00 98.6 98.6 05/02/24 23:00 Room Air* 0 21 General Appearance: Alert, Oriented X3, Cooperative, No acute distress HEENT: Atraumatic, PERRLA, EOMI, Mucous membr. moist/pink Respiratory: Clear to auscultation, Normal air movement Cardiovascular: Regular rate, Normal S1, Normal S2, No murmurs Abdominal: Normal bowel sounds, Soft, No tenderness, No hepatospenomegaly Extremities: No clubbing, No cyanosis, No edema, Normal pulses, No tenderness/swelling Skin: No rashes, No significant lesion Neuro: Normal speech, Normal tone, Sensation intact, Cranial nerves 3-12 NL, Reflexes 2+, Other (RN) Psych/Mental Status: Mental status NL, Mood NL Labs/Xrays Labs Test 05/03/24 00:15 05/02/24 21:42 Range/Units Troponin I High Sensitivity 11 </=54 ng/L White Blood Count 12.3 H 4.4-10.8 10^3/uL Red Blood Count 3.55 L 4.5-5.90 10^6/uL Hemoglobin 10.8 L 13.5-17.5 g/dL Hematocrit 32.7 L 41.0-53.0 % Mean Corpuscular Volume 92.0 80.0-100.0 fL Mean Corpuscular Hemoglobin 30.5 28.0-32.0 pg Mean Corpuscular Hemoglobin Concent 33.1 32.0-36.0 g/dL Red Cell Distribution Width 19.3 H 11.8-14.3 % Platelet Count 246 140-450 10^3/uL Mean Platelet Volume 7.2 6.9-10.8 fL Neutrophils (%) (Auto) 76.5 37.0-80.0 % Lymphocytes (%) (Auto) 15.5 10.0-50.0 % Monocytes (%) (Auto) 7.3 0.0-12.0 % Eosinophils (%) (Auto) 0.4 0.0-7.0 % Basophils (%) (Auto) 0.3 0.0-2.0 % Neutrophils # (Auto) 9.4 H 1.6-8.6 10 ^3/uL Lymphocytes # (Auto) 1.9 0.4-5.4 10 ^3/uL Monocytes # (Auto) 0.9 0-1.3 10 ^3/uL Eosinophils # (Auto) 0.1 0-0.8 10 ^3/uL Basophils # (Auto) 0 0-0.2 10 ^3/uL Nucleated Red Blood Cells 0.0 % Sodium Level 137 136-145 mmol/L Potassium Level 4.2 3.5-5.1 mmol/L Chloride Level 105 98-107 mmol/L Carbon Dioxide Level 24 20-31 mmol/L Anion Gap 8 5-15 Blood Urea Nitrogen 27 H 9-23 mg/dL Creatinine 1.09 0.700-1.30 mg/dL Glomerular Filtration Rate Calc 76 >90 mL/min BUN/Creatinine Ratio 24.8 H 10.0-20.0 Serum Glucose 95 74-106 mg/dL Lactic Acid Level 1.4 0.4-2.0 mmol/L Calcium Level 10.0 8.7-10.4 mg/dL Total Bilirubin 0.5 0.2-1.0 mg/dL Aspartate Amino Transferase (AST) 45 H 13-40 U/L Alanine Aminotransferase (ALT) 41 H 7-40 U/L Alkaline Phosphatase 102 46-116 U/L B-Type Natriuretic Peptide 78.59 0-100 pg/mL Total Protein 7.0 5.7-8.2 g/dL Albumin 3.8 3.2-4.8 g/dL PATIENT: ELIANA BARRERA ACCT: [id number] UNIT: [id number] : 1960 LOC: ER ROOM / BED: / AGE / SEX: 63 / M ADM STATUS: REG ER SERVICE 30 ORDERING PHYSICIAN: DAVID TORRES MD PROCEDURE(s): CXRP - CHEST PORTABLE REASON: sepsis ORDER NUMBER(s): [id number], ACCESSION NUMBER(s): [id number] EXAM: XY CHEST PORTABLE CLINICAL HISTORY: sepsis TECHNIQUE: Single AP view of the chest WID: COMPARISON: CHEST PORTABLE on DOS: 05/13/22 FINDINGS: Lines and tubes: None Chest: The heart size and pulmonary vasculature is within normal limits. Calcified plaque projects over the aortic arch. Hyperexpansion of the lungs. Diffuse interstitial prominence in the lungs. No pneumothorax or pleural effusion. The osseous structures are grossly intact. There are healed posterior left rib fracture deformities IMPRESSION: 1. Hyperexpansion of the lungs which could be COPD or emphysema. 2. Diffuse interstitial prominence in the lungs. DDX includes fibrosis/scarring, atypical infection, or interstitial edema Assessment/Plan Assessment/Plan Acute metabolic encephalopathy Fever, unspecified Generalized weakness Leukocytosis, unspecified Plan 1. Admit to med surge unit 2. Breathing treatment 3. Pain control management 4. IV antibiotic management 5. Management of fluids and electrolytes 6. Consultation for hospitalist 7. Diagnostic test chest x-ray 8. DVT prophylaxis on SCDs 9. Repeat labs CBC, CMP in a.m. 10. Continue with current medical management 11. Treatment plan discussed with patient and RN. Patient verbalized understanding. Plan discussed with: Patient, Other (RN) My Orders Orders - RUDY RAYO DNP Procedure Category Date Status Time Complete Blood Count LAB 05/03/24 Transmitted 05:27 Comprehensive LAB 05/03/24 Transmitted Metabolic Panel 05:27 Cefepime 1 Gm PHA 05/03/24 Transmitted 10:00 Vancomycin Per PHA 05/03/24 Transmitted Pharmacy 05:30 Lorazepam 2mg/Ml Inj PHA 05/03/24 Transmitted (Ativan Inj) 05:30 Ibuprofen Tablet PHA 05/03/24 Transmitted (Motrin Tablet) 05:30 Admit ADMIT 05/03/24 Transmitted 05:27 Allergies SUSANNE 05/03/24 Transmitted 05:27 Code Status CODE 05/03/24 Transmitted 05:27 0.9% Ns 1000 Ml PHA 05/03/24 Transmitted 05:30 Oxygen Per Hour RT 05/03/24 Transmitted 05:27 Hydrocodone-Acet PHA 05/03/24 Transmitted 5/325mg Tab ([place] 05:30 Ondansetron Hcl PHA 05/03/24 Transmitted (Zofran) 05:30 Docusate Sodium PHA 05/03/24 Transmitted Capsule (Colace 05:30 Zinc Sulfate PHA 05/03/24 Transmitted 10:00 Ascorbic Acid Tablet PHA 05/03/24 Transmitted (Vitamin C Tablet) 10:00 Complete Blood Count LAB 05/04/24 Verified 04:00 Comprehensive LAB 05/04/24 Verified Metabolic Panel 04:00 Cardiac DIET 05/03/24 Transmitted Diet-2gna,Lofat,Lochol Breakfast Condition: Serious [facility] 05/03/24 Transmitted 05:27 Bedrest With Bathroom [facility] 05/03/24 Transmitted Privileg 05:27 Sequential [facility] 05/03/24 Transmitted Compression Device Nitroglycerin [facility] 05/03/24 Transmitted Sublingual (Ntrostat 05:30 Morphine Sulfate PHA 05/03/24 Transmitted Injection 05:30 Notify Md Of Changes [facility] 05/03/24 Transmitted From Base 05:27 Emergency Dysrhythmia [facility] 05/03/24 Transmitted Protocol 05:27 Oxygen By Nasal RT 05/03/24 Transmitted Cannula 05:27 Problem List: (1) Acute metabolic encephalopathy (2) Fever, unspecified (3) Generalized weakness (4) Leukocytosis, unspecified Date of Service: May 03, 2024 Billing Provider: RUDY RAYO DNP Common Visit Codes: [id number] INP/OBS CARE (HIGH) RUDY RAYO DNP May 03, 2024 05:34
[2024-05-03] MEDS: SODIUM CHLORIDE 0.9% 1,000 ML IV SCH (05:59)
[2024-05-03] MEDS: VANCOMYCIN 1GM/250mL NS or D5W KIT IV ONE (06:00)
[2024-05-03 08:23] LABS: Basophils # (auto) 0 10 ^3/uL (0-0.2); Basophils % (auto) 0.4 % (0.0-2.0); Eosinophils # (auto) 0.1 10 ^3/uL (0-0.8); Eosinophils % (auto) 0.6 % (0.0-7.0); Hematocrit 29.8 % (41.0-53.0); Hemoglobin 9.7 g/dL (13.5-17.5); Lymphocytes # (auto) 1.8 10 ^3/uL (0.4-5.4); Lymphocytes % (auto) 13.8 % (10.0-50.0); Mean Corpuscular Hemoglobin 30.5 pg (28.0-32.0); Mean Corpuscular Hgb Conc. 32.6 g/dL (32.0-36.0); Mean Corpuscular Volume 93.5 fL (80.0-100.0); Monocytes # (auto) 1.2 10 ^3/uL (0-1.3); Monocytes % (auto) 9.2 % (0.0-12.0); Neutrophils # (auto) 9.7 10 ^3/uL (1.6-8.6); Platelet Count (auto) 215 10^3/uL (140-450); Red Blood Cells 3.19 10^6/uL (4.5-5.90); White Blood Cell 12.7 10^3/uL (4.4-10.8)
[2024-05-03] MEDS: LORazepam 2MG/ML-1ML VIAL IV PRN (08:30)
[2024-05-03 08:45] LABS: Alanine Aminotransferase 36 U/L (7-40); Albumin 3.3 g/dL (3.2-4.8); Alkaline Phosphatase 91 U/L (46-116); Anion Gap 9 (5-15); Aspartate Aminotransferase 39 U/L (13-40); BUN/Creatinine Ratio 28.7 (10.0-20.0); Calcium 9.6 mg/dL (8.7-10.4); Carbon Dioxide 23 mmol/L (20-31); Potassium 4.7 mmol/L (3.5-5.1); Sodium 141 mmol/L (136-145)
[2024-05-03 08:46] LABS: Bilirubin, Total 0.5 mg/dL (0.2-1.0); Total Protein 5.9 g/dL (5.7-8.2)
[2024-05-03 08:47] LABS: Blood Urea Nitrogen 29 mg/dL (9-23); Chloride 109 mmol/L (98-107); Glucose 74 mg/dL (74-106)
[2024-05-03] MEDS: ZINC SULFATE 220mg CAP or TAB PO SCH (09:40)
[2024-05-03] MEDS: MORPHINE SULFATE INJ 2 MG/ml SYRG IV PRN (09:40)
[2024-05-03] MEDS: ASCORBIC ACID 500 MG TAB PO SCH (09:41)
[2024-05-03] MEDS: VANCOMYCIN 1.25GM/250ML 250 ML IV SCH (10:00)
[2024-05-03 10:46] LABS: INR 1.08 (0.9-1.15); Partial Thromboplastin Time 30.4 SEC (24.5-34.5); Prothrombin Time 11.4 sec (9.3-11.8)
--- NOTE | 2024-05-03 11:39 | DVHINCON2 ---
Date of service: May 03, [address] Hernandez Reason for Consultation For G-tube placement apparently the G-tube has come out patient is confused and needs G-tube for feedings and medications History of Present Illness This 63-year-old male with a history of schizophrenia anxiety presented to the emergency room for some wound proper the reason for the GI consult Service because of the G-tube had come out apparently the patient had pulled out the G- tube According to the granddaughter the patient patient had a G-tube inserted in the hospital even though she was surprised about it she has been in and out of some hospitals as per the granddaughter for his problem patient has been watering also but because of the problems with the confusion disorientation and the problems with the G-tube the reason for the GI consult No history of any fever chills etc. Past Medical History Unable to get much detailed history patient probably has got some cysts or any anxiety depression etc. Family History: Patient reports no known family medical history. Family History Noncontributory Social History Denies smoking or drinking as per the Grand daughter Allergies: Coded Allergies: NO KNOWN ALLERGIES (Unverified , 02/24/21) Home Meds Active Scripts Methylprednisolone (Medrol Dosepak) 4 Mg Jarrell, 4 MG PO UD, #21 TAB UAD Prov:TRINIDAD ALICEA 08/10/23 Cephalexin Monohydrate (Cephalexin) 500 Mg Cap, 1 CAP PO TID, #21 CAP Prov:TRINIDAD ALICEA 02/09/23 Reported Medications Clonazepam (Klonopin) 0.5 Mg Tab, 1 TAB PO DAILY, #30 TAB 12/25/13 Current Medications Current Medications Medications (Trade) Dose Ordered Sig/Katie Route PRN Reason Start Time Stop Time Status Last Admin Cefepime HCl 50 ml @ 12.5 mls/hr Q12HR@0100,1300 IV 05/03/24 13:00 Vancomycin HCl 0 ml @ 0 mls/hr UD IV 05/03/24 05:30 Lorazepam (Ativan Inj) 1 mg Q8HP PRN IV ANXIETY 05/03/24 05:30 05/03/24 08:30 Ibuprofen (Motrin Tablet) 600 mg Q6HP PRN PO PAIN SCALE 1-3 OR TEMP>100.4 05/03/24 05:30 Sodium Chloride 1,000 ml @ 60 mls/hr [id number] IV 05/03/24 05:30 05/03/24 05:59 Acetaminophen/ Hydrocodone Bitart ([place] 5/325MG Tab) 1 tab Q4HP PRN PO MODERATE PAIN (4-6 PAIN SCALE) 05/03/24 05:30 Ondansetron HCl (Zofran) 4 mg Q4HP PRN IV NAUSEA / VOMITING 05/03/24 05:30 Docusate Sodium (Colace Capsule) 100 mg BIDPRN PRN PO FOR CONSTIPATION 05/03/24 05:30 Zinc Sulfate 220 mg DAILY PO 05/03/24 10:00 05/03/24 09:40 Ascorbic Acid (Vitamin C Tablet) 500 mg BID PO 05/03/24 10:00 Nitroglycerin (Ntrostat Sublingual) 0.4 mg Q5MINP PRN SL FOR CHEST PAIN 05/03/24 05:30 Morphine Sulfate 2 mg Q30M PRN IV FOR CHEST PAIN 05/03/24 05:30 05/03/24 09:40 Vancomycin HCl 250 ml @ 200 mls/hr Q12H IV 05/03/24 10:00 Review of Systems Unable to get any details Vital Signs Vital Signs Date Time Temp Pulse Resp B/P (MAP) Pulse Ox O2 Delivery O2 Flow Rate FiO2 05/03/24 09:40 85 14 140/82 05/03/24 08:54 99.1 96 99.1 05/02/24 23:00 Room Air* 0 21 Physical Exam Thin built and wasted male confused disoriented HEENT examination no pallor or icterus Lungs clear Vascular unremarkable abdomen the G-tube site is almost closed. No opening seen for replacement tube we will probably need a new G-tube placement at this time Extremities no edema no Neurological confused disoriented and trying to get out of the bed etc. Labs/Diagnostic Data Labs Test 05/03/24 10:00 05/03/24 08:15 05/03/24 00:15 05/02/24 21:42 Range/Units Prothrombin Time 11.4 9.3-11.8 sec Prothrombin Time INR 1.08 0.9-1.15 Activated Partial Thromboplast Time 30.4 24.5-34.5 SEC White Blood Count 12.7 H 4.4-10.8 10^3/uL Red Blood Count 3.19 L 4.5-5.90 10^6/uL Hemoglobin 9.7 L 13.5-17.5 g/dL Hematocrit 29.8 L 41.0-53.0 % Mean Corpuscular Volume 93.5 80.0-100.0 fL Mean Corpuscular Hemoglobin 30.5 28.0-32.0 pg Mean Corpuscular Hemoglobin Concent 32.6 32.0-36.0 g/dL Red Cell Distribution Width 19.0 H 11.8-14.3 % Platelet Count 215 140-450 10^3/uL Mean Platelet Volume 7.1 6.9-10.8 fL Neutrophils (%) (Auto) 76.0 37.0-80.0 % Lymphocytes (%) (Auto) 13.8 10.0-50.0 % Monocytes (%) (Auto) 9.2 0.0-12.0 % Eosinophils (%) (Auto) 0.6 0.0-7.0 % Basophils (%) (Auto) 0.4 0.0-2.0 % Neutrophils # (Auto) 9.7 H 1.6-8.6 10 ^3/uL Lymphocytes # (Auto) 1.8 0.4-5.4 10 ^3/uL Monocytes # (Auto) 1.2 0-1.3 10 ^3/uL Eosinophils # (Auto) 0.1 0-0.8 10 ^3/uL Basophils # (Auto) 0 0-0.2 10 ^3/uL Nucleated Red Blood Cells 0.0 % Sodium Level 141 136-145 mmol/L Potassium Level 4.7 3.5-5.1 mmol/L Chloride Level 109 H 98-107 mmol/L Carbon Dioxide Level 23 20-31 mmol/L Anion Gap 9 5-15 Blood Urea Nitrogen 29 H 9-23 mg/dL Creatinine 1.01 0.700-1.30 mg/dL Glomerular Filtration Rate Calc 84 >90 mL/min BUN/Creatinine Ratio 28.7 H 10.0-20.0 Serum Glucose 74 74-106 mg/dL Calcium Level 9.6 8.7-10.4 mg/dL Total Bilirubin 0.5 0.2-1.0 mg/dL Aspartate Amino Transferase (AST) 39 13-40 U/L Alanine Aminotransferase (ALT) 36 7-40 U/L Alkaline Phosphatase 91 46-116 U/L Total Protein 5.9 5.7-8.2 g/dL Albumin 3.3 3.2-4.8 g/dL Troponin I High Sensitivity 11 </=54 ng/L Lactic Acid Level 1.4 0.4-2.0 mmol/L B-Type Natriuretic Peptide 78.59 0-100 pg/mL Assessment 63-year-old male with a history of schizophrenia anxiety depression presenting with complaints of confusion disorientation as well as G-tube problems which had gone out. Patient has been apparently wandering off and has been in different hospitals for different problems including G-tube placement etc. history is obtained from granddaughter who is surprised at the G-tube etc. but does not know whether she wants it at this time. Physical examination patient is confused disoriented and unable to get any details from him abdomen is soft no tenderness rigidity the G-tube site is completely closed off now and so we will need a new site of G-tube has to be placed fresh new G-tube had to be placed probably Granddaughter is unsure whether he needs one yet Plan/Recommendation will wait for the decision from the granddaughter about the G-tube if she wants a G-tube to be placed we will be too glad to arrange for the same The procedure risks benefits all explained to the daughter and granddaughter and she will wait and then decide and then let us know and then we can decide for the For the time being supportive treatment IV fluids etc. Thank you Dr. Eric Braun discussed with: Other SURINDER LEON MD May 03, 2024 11:39
[2024-05-03] MEDS: CEFEPIME 1GM/ 50ML 50 ML IV SCH (13:10)
[2024-05-03 14:44] VITALS: BP 137/97; PULSE 66; RESP 18; TEMP 97.6; O2SAT 95
[2024-05-03 15:40] VITALS: BP 137/97; PULSE 66; RESP 18; RESP 20; TEMP 97.6; O2SAT 92; O2SAT 95
[2024-05-03 17:00] VITALS: BP 155/84; PULSE 80; RESP 20; TEMP 97.7; O2SAT 91
[2024-05-03] MEDS: OLANZapine 5 MG TAB PO ONE (17:22)
--- NOTE | 2024-05-03 23:56 | DVHPN2 ---
Subjective 05/03 - very cachectic, malnutritioned appearing. appears 20-30 years older than he is. unclear cause or chronicity of this condition. very poor prognosis. peg tube in for unkonwn reasons, will need records. appears family doesnt know alot of info on medical conditions and/or status and/or prognosis. febrile episodes occuring. ?homeless. Reviewed: Care Plan, H&P Changes from previous H/P or p: No Changes General: Per HPI Gastrointestinal: Other (Dislodged G-tube) Skin: Other (Wound) Objective Vitals Vital Signs Date Time Temp Pulse Resp B/P (MAP) Pulse Ox O2 Delivery O2 Flow Rate FiO2 05/03/24 17:00 97.7 80 20 155/84 (107) 91 97.7 05/03/24 15:40 Room Air* 0 21 Intake/Output Intake and Output 05/03/24 07:00 Intake Total 1237.5 ml Balance 1237.5 ml IV Total 1237.5 ml Exam chacectic, anorexiic, manutritioned, , distant breath sounds, minimal alertness, but vitals stable. brath sopunds present in all mays, BS present, s1s2. Medications Current Medications Medications Dose Ordered Sig/Katie Route Start Time Stop Time Status Last Admin Dose Admin Cefepime HCl 50 ml @ 12.5 mls/hr Q12HR@0100,1300 IV 05/03/24 13:00 05/03/24 13:10 12.5 MLS/HR Vancomycin HCl 0 ml @ 0 mls/hr UD IV 05/03/24 05:30 Lorazepam 1 mg Q8HP PRN IV 05/03/24 05:30 05/03/24 08:30 1 MG Ibuprofen 600 mg Q6HP PRN PO 05/03/24 05:30 Sodium Chloride 1,000 ml @ 60 mls/hr [id number] IV 05/03/24 05:30 05/03/24 21:34 60 MLS/HR Acetaminophen/ Hydrocodone Bitart 1 tab Q4HP PRN PO 05/03/24 05:30 Ondansetron HCl 4 mg Q4HP PRN IV 05/03/24 05:30 Docusate Sodium 100 mg BIDPRN PRN PO 05/03/24 05:30 Zinc Sulfate 220 mg DAILY PO 05/03/24 10:00 05/03/24 09:40 220 MG Ascorbic Acid 500 mg BID PO 05/03/24 10:00 Nitroglycerin 0.4 mg Q5MINP PRN SL 05/03/24 05:30 Morphine Sulfate 2 mg Q30M PRN IV 05/03/24 05:30 05/03/24 09:40 2 MG Vancomycin HCl 250 ml @ 200 mls/hr Q12H IV 05/03/24 10:00 05/03/24 21:33 200 MLS/HR Olanzapine 10 mg DAILY PO 05/04/24 10:00 Laboratory Results Laboratory Tests 05/03/24 08:15 Chemistry Test 05/03/24 08:15 Albumin 3.3 g/dL (3.2-4.8) Calcium Level 9.6 mg/dL (8.7-10.4) Total Protein 5.9 g/dL (5.7-8.2) Coagulation Test 05/03/24 10:00 Prothrombin Time 11.4 sec (9.3-11.8) Prothrombin Time INR 1.08 (0.9-1.15) Activated Partial Thromboplast Time 30.4 SEC (24.5-34.5) LFT Test 05/03/24 08:15 Alanine Aminotransferase (ALT) 36 U/L (7-40) Alkaline Phosphatase 91 U/L (46-116) Aspartate Amino Transferase (AST) 39 U/L (13-40) Total Bilirubin 0.5 mg/dL (0.2-1.0) Microbiology Microbiology Date/Time Source Procedure Growth Status 05/02/24 21:48 Blood Blood Culture - Preliminary NO GROWTH AFTER 24 HOURS OF INCUBATION. Resulted Labs and/or images reviewed: Labs reviewed by me, Image(s) reviewed by me Assessment/Plan Assessment/Plan 05/03 - very cachectic, malnutritioned appearing. appears 20-30 years older than he is. unclear cause or chronicity of this condition. very poor prognosis. peg tube in for unkonwn reasons, will need records. appears family doesnt know alot of info on medical conditions and/or status and/or prognosis. febrile episodes occuring. ?homeless. acute on chronic encephalopathy s/p PEG tube insertioned, uninteionalled removed by patient sepsis due like likly pulmonary versus urinary vs GI source leukocytosis, neutrophilia febrile illness dementia, possible, unknown chronicity severe malnutritioned cachecia Hx meth buse ?homelessness -work-up joey far unremarkable - need bladder scan - conitnue broad spectrum abx - may need olaznepinr for agitation and telepsych consult. as need ativan/haldol per hospitalistt -ekg to eval qtx prn. - social consult after stablize for dc planning and placement. - PT eval. - [employer] [facility] (vs npo if aspirating) lovenox prootnox iv medsurg full code Plan discussed with: Patient My Orders Orders - MARYJO QUINONEZ MD Procedure Category Date Status Time Behavioral Restraints ORDERS 05/03/24 Transmitted 10:52 Clear Liq Diet DIET 05/03/24 Transmitted Dinner Speech Evaluation ST 05/03/24 Logged 16:34 *Tele Psych Consult CONS 05/03/24 Transmitted 16:34 Olanzapine Tablet PHA 05/04/24 In Process (Zyprexa Tablet) 10:00 Hi Ekg Tracing ORDERS 05/03/24 Transmitted 16:34 Date of Service: May 03, 2024 Billing Provider: MARYJO QUINONEZ MD Common Visit Codes: [id number] INP/OBS CARE(HIGH) MARYJO QUINONEZ MD May 03, 2024 23:56
[2024-05-04 07:39] LABS: Basophils # (auto) 0.1 10 ^3/uL (0-0.2); Basophils % (auto) 0.7 % (0.0-2.0); Eosinophils # (auto) 0.2 10 ^3/uL (0-0.8); Eosinophils % (auto) 1.5 % (0.0-7.0); Hematocrit 29.3 % (41.0-53.0); Hemoglobin 9.6 g/dL (13.5-17.5); Lymphocytes # (auto) 1.3 10 ^3/uL (0.4-5.4); Lymphocytes % (auto) 12.8 % (10.0-50.0); Mean Corpuscular Hemoglobin 30.3 pg (28.0-32.0); Mean Corpuscular Hgb Conc. 32.7 g/dL (32.0-36.0); Mean Corpuscular Volume 92.9 fL (80.0-100.0); Monocytes # (auto) 0.7 10 ^3/uL (0-1.3); Monocytes % (auto) 6.9 % (0.0-12.0); Neutrophils # (auto) 8.1 10 ^3/uL (1.6-8.6); Neutrophils % (auto) 78.1 % (37.0-80.0); Platelet Count (auto) 224 10^3/uL (140-450); Red Blood Cells 3.15 10^6/uL (4.5-5.90); Red Cell Distribution Width 19.2 % (11.8-14.3); White Blood Cell 10.4 10^3/uL (4.4-10.8)
[2024-05-04 08:00] VITALS: PULSE 80; RESP 20; O2SAT 91
[2024-05-04 08:08] LABS: Alanine Aminotransferase 29 U/L (7-40); Alkaline Phosphatase 82 U/L (46-116); Anion Gap 11 (5-15); Aspartate Aminotransferase 30 U/L (13-40); BUN/Creatinine Ratio 22.7 (10.0-20.0); Bilirubin, Total 0.4 mg/dL (0.2-1.0); Blood Urea Nitrogen 20 mg/dL (9-23); Carbon Dioxide 22 mmol/L (20-31); Chloride 106 mmol/L (98-107); Glucose 78 mg/dL (74-106); Potassium 3.8 mmol/L (3.5-5.1); Sodium 139 mmol/L (136-145); Total Protein 5.9 g/dL (5.7-8.2)
[2024-05-04 08:22] LABS: Albumin 3.2 g/dL (3.2-4.8)
[2024-05-04 08:31] LABS: Urine Bacteria None Seen /hpf (None Seen)
[2024-05-04 08:45] LABS: Urine Blood Negative /uL (Negative); Urine Clarity Clear (Clear); Urine Color Light-Yellow (Yellow); Urine Hyaline Cast FEW /lpf (0 - 2); Urine Mucus FEW (None Seen); Urine Protein, UAD Negative (Negative); Urine Specific Gravity 1.016 (1.001-1.035); Urine Squamous Epithelial Cell None Seen /hpf (<5); Urine Urobilinogen Normal (Negative); Urine WBC 11 /HPF (0-3)
[2024-05-04 09:00] VITALS: BP 142/69; PULSE 66; RESP 16; TEMP 98; O2SAT 97
[2024-05-04] MEDS: OLANZapine 5 MG TAB PO SCH (09:57)
[2024-05-04 10:18] LABS: Cannabinoid Screen, Urine Neg (NEGATIVE); Opiate Scree,Urine Neg (NEGATIVE)
[2024-05-04 10:25] LABS: Amphetamine Screen, Urine Pos (NEGATIVE); Barbiturate Scree,Urine Neg (NEGATIVE); Benzodiazephine Screen, Urine Neg (NEGATIVE); Cocaine Screen, Urine Neg (NEGATIVE); Phencyclidine Screen, Urine Neg (NEGATIVE)
--- NOTE | 2024-05-04 10:47 | DVH ---
CLINICAL INFORMATION: 63 years old, Male; altered mental status. TECHNIQUE: Axial imaging was obtained through the brain without contrast. Coronal and sagittal refor matted images were obtained, reviewed, and stored. Images were reviewed in brain and bone windows. A ll CT scans at this medical facility are performed using dose modulation techniques as appropriate to a performed exam including the following: Automated exposure control was utilized; adjustment of the MA and/or KV according to patient size; and use of iterative reconstruction technique. CTDIvol = 61.01 mGy DLP = 1200.57 mGy-cm COMPARISON: CT HEAD WITHOUT CONTRAST on DOS: 06/22/22 FINDINGS: There is no acute intracranial hemorrhage or extraaxial fluid collection. No mass effect o r midline shift. The ventricles and sulci are within normal limits in size for age. Basal cisterns a re patent. The calvarium is unremarkable. Paranasal sinuses are clear. There is sclerosis of the mastoids bilaterally, likely sequelae of prior inflammation. Partial opacification of the left mastoi d air cells. IMPRESSION: 1. No CT evidence of acute intracranial abnormality. 2. Partial opacification of the left mastoid air cells. Correlate clinically to exclude mastoiditis. Sclerosis of the mastoid air cells bilaterally, likely sequela of prior inflammation.
[2024-05-04] MEDS: AZITHROMYCIN 500MG/ 250ML 250 ML IV ONE (12:54)
[2024-05-04 13:00] VITALS: BP 132/83; PULSE 66; RESP 18; TEMP 97.7; O2SAT 95
[2024-05-04 16:41] VITALS: BP 118/74; PULSE 80; RESP 17; TEMP 98.2; O2SAT 96
[2024-05-04] MEDS: FOLIC ACID 1 MG, MULTIPLE VITAMIN 10 ML, MAGNESIUM SULF SDV 50% 8 MEQ, THIAMINE INJ 100... INJ SCH (18:23)
[2024-05-04 21:00] VITALS: BP 136/56; PULSE 79; RESP 20; TEMP 98.7; O2SAT 92
[2024-05-05 01:00] VITALS: BP 136/58; PULSE 65; RESP 17; TEMP 97.9; O2SAT 92
[2024-05-05 02:44] LABS: Rapid Influenza A Negative (Negative); Rapid Influenza B Negative (Negative)
[2024-05-05 02:45] LABS: COVID19 ANTIGEN SOFIA FIA NEGATIVE (NEGATIVE)
[2024-05-05 05:00] VITALS: BP 101/51; PULSE 68; RESP 18; TEMP 98.4; O2SAT 92
[2024-05-05 09:01] VITALS: BP 118/64; PULSE 65; RESP 22; TEMP 97.8; O2SAT 93
[2024-05-05] MEDS: AZITHROMYCIN 500MG/ 250ML 250 ML IV SCH (10:32)
[2024-05-05 11:49] LABS: Folate (Folic Acid) 15.34 ng/mL (>5.38)
[2024-05-05 12:39] VITALS: BP 93/56; PULSE 87; RESP 20; TEMP 98.7; O2SAT 94
[2024-05-05 16:38] VITALS: BP 101/56; PULSE 68; RESP 20; TEMP 98.9; O2SAT 96
--- NOTE | 2024-05-05 18:03 | DVHPN2 ---
Subjective NOTE FOR 05/04 05/03 - very cachectic, malnutritioned appearing. appears 20-30 years older than he is. unclear cause or chronicity of this condition. very poor prognosis. peg tube in for unkonwn reasons, will need records. appears family doesnt know alot of info on medical conditions and/or status and/or prognosis. febrile episodes occuring. ?homeless. 05/04 - alert more today. still very weak. Reviewed: Care Plan, H&P Changes from previous H/P or p: No Changes General: Per HPI Gastrointestinal: Other (Dislodged G-tube) Skin: Other (Wound) Objective Vitals Vital Signs Date Time Temp Pulse Resp B/P (MAP) Pulse Ox O2 Delivery O2 Flow Rate FiO2 05/05/24 16:38 98.9 68 20 101/56 (71) 96 98.9 05/05/24 08:10 Room Air* 0 21 Intake/Output Intake and Output 05/05/24 07:00 Intake Total 3202.5 ml Output Total 1250 ml Balance 1952.5 ml Intake Oral 1820 ml IV Total 1382.5 ml Output Urine Total 1250 ml # Voids 4 # Bowel Movements 1 Exam chacectic, anorexiic, manutritioned, , distant breath sounds, minimal alertness, but vitals stable. brath sopunds present in all mays, BS present, s1s2. Medications Current Medications Medications Dose Ordered Sig/Katie Route Start Time Stop Time Status Last Admin Dose Admin Cefepime HCl 50 ml @ 12.5 mls/hr Q12HR@0100,1300 IV 05/03/24 13:00 05/05/24 13:41 12.5 MLS/HR Vancomycin HCl 0 ml @ 0 mls/hr UD IV 05/03/24 05:30 Lorazepam 1 mg Q8HP PRN IV 05/03/24 05:30 05/03/24 08:30 1 MG Ibuprofen 600 mg Q6HP PRN PO 05/03/24 05:30 Sodium Chloride 1,000 ml @ 60 mls/hr [id number] IV 05/03/24 05:30 05/05/24 07:30 60 MLS/HR Acetaminophen/ Hydrocodone Bitart 1 tab Q4HP PRN PO 05/03/24 05:30 Ondansetron HCl 4 mg Q4HP PRN IV 05/03/24 05:30 Docusate Sodium 100 mg BIDPRN PRN PO 05/03/24 05:30 Zinc Sulfate 220 mg DAILY PO 05/03/24 10:00 05/05/24 10:32 220 MG Ascorbic Acid 500 mg BID PO 05/03/24 10:00 05/05/24 10:32 500 MG Nitroglycerin 0.4 mg Q5MINP PRN SL 05/03/24 05:30 Morphine Sulfate 2 mg Q30M PRN IV 05/03/24 05:30 05/03/24 09:40 2 MG Olanzapine 10 mg DAILY PO 05/04/24 10:00 05/05/24 10:32 10 MG Folic Acid 1 mg/ Multivitamins 10 ml/Magnesium Sulfate 8 meq/ Thiamine HCl 100 mg/Dextrose 1,013.2 ml @ 125.001 mls/hr DAILY@1800 INJ 05/04/24 18:00 05/05/24 18:01 125.001 MLS/HR Azithromycin 250 ml @ 125 mls/hr DAILY IV 05/05/24 10:00 05/05/24 10:32 125 MLS/HR Laboratory Results Laboratory Tests 05/04/24 06:59 05/05/24 11:38 Urinalysis Test 05/04/24 04:10 Urine Color Light-yellow (Yellow) Urine Clarity Clear (Clear) Urine pH 5.0 (5.0-9.0) Urine Specific [place] 1.016 (1.001-1.035) Urine Protein Negative (Negative) Urine Ketones Trace (Negative) Urine Blood Negative /uL (Negative) Urine Nitrite Negative (Negative) Urine Bilirubin Negative (Negative) Urine Urobilinogen Normal mg/dL (Negative) Urine Leukocyte Esterase Trace /uL (Negative) Urine RBC 1 /hpf (0 - 3) Urine Microscopic WBC 11 /HPF (0-3) H Urine Squamous Epithelial Cells None seen /hpf (<5) Urine Bacteria None seen /hpf (None Seen) Urine Hyaline Casts Few /lpf (0 - 2) Urine Mucus Few (None Seen) Urine Glucose Normal mg/dL (Normal) Microbiology Microbiology Date/Time Source Procedure Growth Status 05/04/24 09:40 Nose MRSA Screen - Final Complete 05/02/24 21:48 Blood Blood Culture - Preliminary NO GROWTH AFTER 48 HOURS OF INCUBATION. Resulted Labs and/or images reviewed: Labs reviewed by me, Image(s) reviewed by me Assessment/Plan Assessment/Plan 05/04 - alert more today. still very weak. acute on chronic encephalopathy s/p PEG tube insertioned, uninteionalled removed by patient sepsis due like likly pulmonary versus urinary vs GI source leukocytosis, neutrophilia febrile illness dementia, possible, unknown chronicity severe malnutritioned cachecia Hx meth buse ?homelessness -work-up joey far unremarkable - need bladder scan - conitnue broad spectrum abx - may need olaznepinr for agitation and telepsych consult. as need ativan/haldol per hospitalistt -ekg to eval qtx prn. - social consult after stablize for dc planning and placement. - PT eval. - [employer] [facility] (vs npo if aspirating) lovenox prootnox iv medsurg full code NOTE DATE for 05/04/24 Plan discussed with: Other My Orders Orders - MARYJO QUINONEZ MD Procedure Category Date Status Time Pureed DIET 05/05/24 Transmitted Breakfast Date of Service: May 04, 2024 Billing Provider: MARYJO QUINONEZ MD Common Visit Codes: [id number] INP/OBS CARE(HIGH) MARYJO QUINONEZ MD May 05, 2024 18:03
--- NOTE | 2024-05-05 18:04 | DVHPN2 ---
Subjective update 05/05 05/03 - very cachectic, malnutritioned appearing. appears 20-30 years older than he is. unclear cause or chronicity of this condition. very poor prognosis. peg tube in for unkonwn reasons, will need records. appears family doesnt know alot of info on medical conditions and/or status and/or prognosis. febrile episodes occuring. ?homeless. 05/05 - patient more awake and alrt today. walking to bathroom with assstance. expecting to work with PT. AOx1 only. talks very low voice . Reviewed: Care Plan, H&P Changes from previous H/P or p: No Changes General: Per HPI Gastrointestinal: Other (Dislodged G-tube) Skin: Other (Wound) Objective Vitals Vital Signs Date Time Temp Pulse Resp B/P (MAP) Pulse Ox O2 Delivery O2 Flow Rate FiO2 05/05/24 16:38 98.9 68 20 101/56 (71) 96 98.9 05/05/24 08:10 Room Air* 0 21 Intake/Output Intake and Output 05/05/24 07:00 Intake Total 3202.5 ml Output Total 1250 ml Balance 1952.5 ml Intake Oral 1820 ml IV Total 1382.5 ml Output Urine Total 1250 ml # Voids 4 # Bowel Movements 1 Exam chacectic, anorexiic, manutritioned, , distant breath sounds, minimal alertness, but vitals stable. brath sopunds present in all mays, BS present, s1s2. Medications Current Medications Medications Dose Ordered Sig/Katie Route Start Time Stop Time Status Last Admin Dose Admin Cefepime HCl 50 ml @ 12.5 mls/hr Q12HR@0100,1300 IV 05/03/24 13:00 05/05/24 13:41 12.5 MLS/HR Vancomycin HCl 0 ml @ 0 mls/hr UD IV 05/03/24 05:30 Lorazepam 1 mg Q8HP PRN IV 05/03/24 05:30 05/03/24 08:30 1 MG Ibuprofen 600 mg Q6HP PRN PO 05/03/24 05:30 Sodium Chloride 1,000 ml @ 60 mls/hr [id number] IV 05/03/24 05:30 05/05/24 07:30 60 MLS/HR Acetaminophen/ Hydrocodone Bitart 1 tab Q4HP PRN PO 05/03/24 05:30 Ondansetron HCl 4 mg Q4HP PRN IV 05/03/24 05:30 Docusate Sodium 100 mg BIDPRN PRN PO 05/03/24 05:30 Zinc Sulfate 220 mg DAILY PO 05/03/24 10:00 05/05/24 10:32 220 MG Ascorbic Acid 500 mg BID PO 05/03/24 10:00 05/05/24 10:32 500 MG Nitroglycerin 0.4 mg Q5MINP PRN SL 05/03/24 05:30 Morphine Sulfate 2 mg Q30M PRN IV 05/03/24 05:30 05/03/24 09:40 2 MG Olanzapine 10 mg DAILY PO 05/04/24 10:00 05/05/24 10:32 10 MG Folic Acid 1 mg/ Multivitamins 10 ml/Magnesium Sulfate 8 meq/ Thiamine HCl 100 mg/Dextrose 1,013.2 ml @ 125.001 mls/hr DAILY@1800 INJ 05/04/24 18:00 05/05/24 18:01 125.001 MLS/HR Azithromycin 250 ml @ 125 mls/hr DAILY IV 05/05/24 10:00 05/05/24 10:32 125 MLS/HR Laboratory Results Laboratory Tests 05/04/24 06:59 05/05/24 11:38 Urinalysis Test 05/04/24 04:10 Urine Color Light-yellow (Yellow) Urine Clarity Clear (Clear) Urine pH 5.0 (5.0-9.0) Urine Specific [place] 1.016 (1.001-1.035) Urine Protein Negative (Negative) Urine Ketones Trace (Negative) Urine Blood Negative /uL (Negative) Urine Nitrite Negative (Negative) Urine Bilirubin Negative (Negative) Urine Urobilinogen Normal mg/dL (Negative) Urine Leukocyte Esterase Trace /uL (Negative) Urine RBC 1 /hpf (0 - 3) Urine Microscopic WBC 11 /HPF (0-3) H Urine Squamous Epithelial Cells None seen /hpf (<5) Urine Bacteria None seen /hpf (None Seen) Urine Hyaline Casts Few /lpf (0 - 2) Urine Mucus Few (None Seen) Urine Glucose Normal mg/dL (Normal) Microbiology Microbiology Date/Time Source Procedure Growth Status 05/04/24 09:40 Nose MRSA Screen - Final Complete 05/02/24 21:48 Blood Blood Culture - Preliminary NO GROWTH AFTER 48 HOURS OF INCUBATION. Resulted Labs and/or images reviewed: Labs reviewed by me, Image(s) reviewed by me Assessment/Plan Assessment/Plan 2/3 - patient more awake and alrt today. walking to bathroom with assstance. expecting to work with PT. AOx1 only. talks very low voice . acute on chronic encephalopathy s/p PEG tube insertioned, uninteionalled removed by patient sepsis due like likly pulmonary versus urinary vs GI source leukocytosis, neutrophilia febrile illness dementia, possible, unknown chronicity severe malnutritioned cachecia Hx meth abuse ?homelessness -work-up joey far unremarkable - need bladder scan - conitnue broad spectrum abx - may need olaznepinr for agitation and telepsych consult. as need ativan/haldol per hospitalistt - ekg to eval qtx prn. - social consult after stablize for dc planning and placement. - PT eval. 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
--- NOTE | 2024-05-05 20:16 | DVHINCON2 ---
Date of Service if different f: May 05, 2024 Time of Service: 17:26 Consultation ([facility]) Consulting Physician: MARTITA MARINO MD Labs Laboratory Tests Test 05/02/24 21:42 05/03/24 00:15 05/03/24 10:00 05/04/24 04:10 Lactic Acid Level 1.4 mmol/L (0.4-2.0) B-Type Natriuretic Peptide 78.59 pg/mL (0-100) Troponin I High Sensitivity 11 ng/L (</=54) Prothrombin Time 11.4 sec (9.3-11.8) Prothromb Time International Ratio 1.08 (0.9-1.15) Activated Partial Thromboplast Time 30.4 SEC (24.5-34.5) Urine Color Light-yellow (Yellow) Urine Clarity Clear (Clear) Urine pH 5.0 (5.0-9.0) Urine Specific [place] 1.016 (1.001-1.035) Urine Protein Negative (Negative) Urine Ketones Trace (Negative) Urine Blood Negative /uL (Negative) Urine Nitrite Negative (Negative) Urine Bilirubin Negative (Negative) Urine Urobilinogen Normal mg/dL (Negative) Urine Leukocyte Esterase Trace /uL (Negative) Urine RBC 1 /hpf (0 - 3) Urine Microscopic WBC 11 /HPF (0-3) Urine Squamous Epithelial Cells None seen /hpf (<5) Urine Bacteria None seen /hpf (None Seen) Urine Hyaline Casts Few /lpf (0 - 2) Urine Mucus Few (None Seen) Urine Glucose Normal mg/dL (Normal) Urine Opiates Screen Neg (NEGATIVE) Urine Fentanyl Screen Neg (NEGATIVE) Urine Barbiturates Screen Neg (NEGATIVE) Urine Phencyclidine Screen Neg (NEGATIVE) Urine Amphetamines Screen Pos (NEGATIVE) Urine Benzodiazepines Screen Neg (NEGATIVE) Urine Cocaine Screen Neg (NEGATIVE) Urine Cannabinoids Screen Neg (NEGATIVE) Test 05/04/24 06:59 05/04/24 11:36 05/04/24 21:00 05/05/24 01:40 White Blood Count 10.4 10^3/uL (4.4-10.8) Red Blood Count 3.15 10^6/uL (4.5-5.90) Hemoglobin 9.6 g/dL (13.5-17.5) Hematocrit 29.3 % (41.0-53.0) Mean Corpuscular Volume 92.9 fL (80.0-100.0) Mean Corpuscular Hemoglobin 30.3 pg (28.0-32.0) Mean Corpuscular Hemoglobin Concent 32.7 g/dL (32.0-36.0) Red Cell Distribution Width 19.2 % (11.8-14.3) Platelet Count 224 10^3/uL (140-450) Mean Platelet Volume 7.2 fL (6.9-10.8) Neutrophils (%) (Auto) 78.1 % (37.0-80.0) Lymphocytes (%) (Auto) 12.8 % (10.0-50.0) Monocytes (%) (Auto) 6.9 % (0.0-12.0) Eosinophils (%) (Auto) 1.5 % (0.0-7.0) Basophils (%) (Auto) 0.7 % (0.0-2.0) Neutrophils # (Auto) 8.1 10 ^3/uL (1.6-8.6) Lymphocytes # (Auto) 1.3 10 ^3/uL (0.4-5.4) Monocytes # (Auto) 0.7 10 ^3/uL (0-1.3) Eosinophils # (Auto) 0.2 10 ^3/uL (0-0.8) Basophils # (Auto) 0.1 10 ^3/uL (0-0.2) Nucleated Red Blood Cells 0.0 % Sodium Level 139 mmol/L (136-145) Potassium Level 3.8 mmol/L (3.5-5.1) Chloride Level 106 mmol/L (98-107) Carbon Dioxide Level 22 mmol/L (20-31) Anion Gap 11 (5-15) Blood Urea Nitrogen 20 mg/dL (9-23) BUN/Creatinine Ratio 22.7 (10.0-20.0) Serum Glucose 78 mg/dL (74-106) Calcium Level 10.0 mg/dL (8.7-10.4) Magnesium Level 1.9 mg/dL (1.6-2.6) Total Bilirubin 0.4 mg/dL (0.2-1.0) Aspartate Amino Transf (AST/SGOT) 30 U/L (13-40) Alanine Aminotransferase (ALT/SGPT) 29 U/L (7-40) Alkaline Phosphatase 82 U/L (46-116) Total Protein 5.9 g/dL (5.7-8.2) Albumin 3.2 g/dL (3.2-4.8) Ammonia 25 umol/L (11-32) Vitamin B12 Level 964 pg/mL (211-911) Vitamin D 25-Hydroxy 43.7 ng/mL (30.0-100) Folic Acid (LAB) 15.34 ng/mL (>5.38) Vancomycin Level Trough 31.1 ug/mL (5-10) Influenza Type A Antigen Negative (Negative) Influenza Type B Antigen Negative (Negative) SARS-CoV-2 Antigen (Rapid) Negative (NEGATIVE) Test 05/05/24 11:38 Creatinine 0.85 mg/dL (0.700-1.30) Glomerular Filtration Rate Calc 98 mL/min (>90) Random Vancomycin Level 22.4 ug/mL (5-10) Microbiology Date/Time Source Procedure Growth Status 05/04/24 09:40 Nose MRSA Screen - Final Complete 05/02/24 21:48 Blood Blood Culture - Preliminary NO GROWTH AFTER 48 HOURS OF INCUBATION. Resulted Appearance: Older than stated age Psychomotor activity: WNL, Calm Behavioral: Cooperative Eye contact: Appropriate Speech: Dysarthric Affect: Appropriate, Mood Congruent Mood: Euthymic Thought processes: Linear/Goal-directed Thought content: WNL Suicidal ideations: Absent Homicidal ideations: Absent Orientation: Person Memory intact: Poor Intellect: Average Abstractability: WNL Concentration: Adequate Attention: Adequate Judgement: Poor Insight: Poor Vitals Vital Signs Date Time Temp Pulse Resp B/P (MAP) Pulse Ox O2 Delivery O2 Flow Rate FiO2 05/05/24 16:38 98.9 68 20 101/56 (71) 96 98.9 05/05/24 08:10 Room Air* 0 21 Current medications Current Medications Medications Dose Ordered Sig/Katie Route Start Time Stop Time Status Last Admin Dose Admin Cefepime HCl 50 ml @ 12.5 mls/hr Q12HR@0100,1300 IV 05/03/24 13:00 05/05/24 13:41 12.5 MLS/HR Vancomycin HCl 0 ml @ 0 mls/hr UD IV 05/03/24 05:30 Lorazepam 1 mg Q8HP PRN IV 05/03/24 05:30 05/03/24 08:30 1 MG Ibuprofen 600 mg Q6HP PRN PO 05/03/24 05:30 Sodium Chloride 1,000 ml @ 60 mls/hr [id number] IV 05/03/24 05:30 05/05/24 07:30 60 MLS/HR Acetaminophen/ Hydrocodone Bitart 1 tab Q4HP PRN PO 05/03/24 05:30 Ondansetron HCl 4 mg Q4HP PRN IV 05/03/24 05:30 Docusate Sodium 100 mg BIDPRN PRN PO 05/03/24 05:30 Zinc Sulfate 220 mg DAILY PO 05/03/24 10:00 05/05/24 10:32 220 MG Ascorbic Acid 500 mg BID PO 05/03/24 10:00 05/05/24 10:32 500 MG Nitroglycerin 0.4 mg Q5MINP PRN SL 05/03/24 05:30 Morphine Sulfate 2 mg Q30M PRN IV 05/03/24 05:30 05/03/24 09:40 2 MG Olanzapine 10 mg DAILY PO 05/04/24 10:00 05/05/24 10:32 10 MG Folic Acid 1 mg/ Multivitamins 10 ml/Magnesium Sulfate 8 meq/ Thiamine HCl 100 mg/Dextrose 1,013.2 ml @ 125.001 mls/hr DAILY@1800 INJ 05/04/24 18:00 05/04/24 18:23 125.001 MLS/HR Azithromycin 250 ml @ 125 mls/hr DAILY IV 05/05/24 10:00 05/05/24 10:32 125 MLS/HR Treatment plan discussed: With staff Medication adjusted: Yes Labs ordered: No Psychotherapy provided: No Type: Voluntary History of Present Illness Reason for Consult: psychiatric evaluation PER H&P: Patient is a 63-year-old male with past medical history of depression, schizophrenia, and anxiety presented to [facility] ED with granddaughter for evaluation of wound check..Granddaughter claims that she takes care of the patient, despite the patient wandering off all the time. She last saw the patient at [facility], and was surprised why the patient had a g- tube inserted. Patient pulled out the g-tube earlier and patient was brought to [facility]. However, they couldn't take care of the patients issues with the g-tube and was advised to go seek help somewhere else. Patient was seen and evaluated in the ED, laboratory data shows WBC 12.3, hemoglobin 10.8, hematocrit 32.7, platelets 246, sodium 137, potassium 4.2, BUN 27, creatinine 1.09, GFR 76, glucose 95, AST 45, ALT 41, troponin 12. GI will follow the patient regarding dislodged G-tube. Patient was started on IV antibiotic regimen cefepime, please see medication orders section in the computer. On my a ssessment, patient denies chest pain, no headache, no dizziness, no nausea, no vomiting, no fever, no chills. Patient was admitted for further evaluation and medical management. PSYCHIATRIST HPI: The patient was seen and evaluated at [facility] via telepsychiatry platform. 63 yr old male admitted 05/02 with altered mental status and had removed a G-tube and was diagnosed with acute metabolic encephalopathy. He reported that he is feeling "fine" and "Tired" now. He was able to give some information on his past, stating that he lived with his granddaughter in [place] and has a history of paranoid schizophrenia with multiple hospitalizations and suicide attempts in the past. He noted he had been on Trazodone but could not recall being on antipsychotics. He denied any recent substance use and could not recall why he had a G-tube. He denied having any auditory or visual hallucinations and he denied having homicidal or suicidal ideation, plan or intent. Attempt made to call granddaughterGavi ([phone]) for collateral information was made at [phone]. Message left with her but no call back was received. Past Psychiatric History : Multiple hospitalizations. Multiple past suicide attempts. Diagnosed with paranoid schizophrenia. Current medications: Trazodone Allergic history: sulfa antibiotics Substance Use: Denied use of alcohol and other drug use. Social History : Lives with granddaughterGavi in [place]. Never . Three children. Worked in construction in the past. DIAGNOSIS: UNSPECIFIED PSYCHOTIC DISORDER Formulation: This 63 yr old male appears to suffer from schizophrenia but has return of his cognitive abilities, likely to his baseline although collateral information from his granddaughter could help determine his baseline. He may benefit from starting an antipsychotic. He does not warrant psychiatric hospitalization. Plan: 1. Safety. The patient is a low risk for self harm. 2. Legal: Voluntary. 3. Medications: recommend starting Zyprexa 5mg qhs 4. Case discussed with Team RADU Marquez. 5. Please recontact psychiatry for further follow up or reevaluation. Assessment/Diagnosis/Plan Reviewed: Labs, Medications, Previous Orders MARTITA MARINO MD May 05, 2024 16:54
[2024-05-05 21:00] VITALS: BP 121/63; PULSE 66; RESP 18; TEMP 98.7; O2SAT 94
[2024-05-06 01:00] VITALS: BP 116/62; PULSE 69; RESP 17; TEMP 98.5; O2SAT 95
[2024-05-06 07:24] LABS: Anion Gap 7 (5-15); Carbon Dioxide 22 mmol/L (20-31); Potassium 4.1 mmol/L (3.5-5.1); Sodium 138 mmol/L (136-145)
[2024-05-06 07:25] LABS: Calcium 9.6 mg/dL (8.7-10.4)
[2024-05-06 07:27] LABS: Glucose 95 mg/dL (74-106)
[2024-05-06 07:30] LABS: BUN/Creatinine Ratio 15.2 (10.0-20.0); Blood Urea Nitrogen 12 mg/dL (9-23)
[2024-05-06 07:33] LABS: Chloride 109 mmol/L (98-107)
[2024-05-06 09:00] VITALS: BP 105/54; PULSE 66; RESP 20; TEMP 97.7; O2SAT 94
[2024-05-06 13:00] VITALS: BP 101/51; PULSE 72; RESP 16; TEMP 98.1; O2SAT 93
--- NOTE | 2024-05-06 14:10 | DVHDS2 ---
Discharge Summary Date of Admission May 03, 2024 at 05:27 Date of Discharge: May 06, 2024 Labs/Diagnostic Data: Laboratory Results Test 05/06/24 05:42 05/05/24 01:40 05/04/24 21:00 05/04/24 11:36 Sodium Level 138 mmol/L (136-145) Potassium Level 4.1 mmol/L (3.5-5.1) Chloride Level 109 mmol/L (98-107) Carbon Dioxide Level 22 mmol/L (20-31) Anion Gap 7 (5-15) Blood Urea Nitrogen 12 mg/dL (9-23) Creatinine 0.79 mg/dL (0.700-1.30) Glomerular Filtration Rate Calc 100 mL/min (>90) BUN/Creatinine Ratio 15.2 (10.0-20.0) Serum Glucose 95 mg/dL (74-106) Calcium Level 9.6 mg/dL (8.7-10.4) Random Vancomycin Level 13.7 ug/mL (5-10) Influenza Type A Antigen Negative (Negative) Influenza Type B Antigen Negative (Negative) SARS-CoV-2 Antigen (Rapid) Negative (NEGATIVE) Vancomycin Level Trough 31.1 ug/mL (5-10) Ammonia 25 umol/L (11-32) Vitamin B12 Level 964 pg/mL (211-911) Vitamin D 25-Hydroxy 43.7 ng/mL (30.0-100) Folic Acid 15.34 ng/mL (>5.38) Test 05/04/24 06:59 05/04/24 04:10 05/03/24 10:00 05/03/24 00:15 White Blood Count 10.4 10^3/uL (4.4-10.8) Red Blood Count 3.15 10^6/uL (4.5-5.90) Hemoglobin 9.6 g/dL (13.5-17.5) Hematocrit 29.3 % (41.0-53.0) Mean Corpuscular Volume 92.9 fL (80.0-100.0) Mean Corpuscular Hemoglobin 30.3 pg (28.0-32.0) Mean Corpuscular Hemoglobin Concent 32.7 g/dL (32.0-36.0) Red Cell Distribution Width 19.2 % (11.8-14.3) Platelet Count 224 10^3/uL (140-450) Mean Platelet Volume 7.2 fL (6.9-10.8) Neutrophils (%) (Auto) 78.1 % (37.0-80.0) Lymphocytes (%) (Auto) 12.8 % (10.0-50.0) Monocytes (%) (Auto) 6.9 % (0.0-12.0) Eosinophils (%) (Auto) 1.5 % (0.0-7.0) Basophils (%) (Auto) 0.7 % (0.0-2.0) Neutrophils # (Auto) 8.1 10 ^3/uL (1.6-8.6) Lymphocytes # (Auto) 1.3 10 ^3/uL (0.4-5.4) Monocytes # (Auto) 0.7 10 ^3/uL (0-1.3) Eosinophils # (Auto) 0.2 10 ^3/uL (0-0.8) Basophils # (Auto) 0.1 10 ^3/uL (0-0.2) Nucleated Red Blood Cells 0.0 % Magnesium Level 1.9 mg/dL (1.6-2.6) Total Bilirubin 0.4 mg/dL (0.2-1.0) Aspartate Amino Transferase (AST) 30 U/L (13-40) Alanine Aminotransferase (ALT) 29 U/L (7-40) Alkaline Phosphatase 82 U/L (46-116) Total Protein 5.9 g/dL (5.7-8.2) Albumin 3.2 g/dL (3.2-4.8) Urine Color Light-yellow (Yellow) Urine Clarity Clear (Clear) Urine pH 5.0 (5.0-9.0) Urine Specific [place] 1.016 (1.001-1.035) Urine Protein Negative (Negative) Urine Ketones Trace (Negative) Urine Blood Negative /uL (Negative) Urine Nitrite Negative (Negative) Urine Bilirubin Negative (Negative) Urine Urobilinogen Normal mg/dL (Negative) Urine Leukocyte Esterase Trace /uL (Negative) Urine RBC 1 /hpf (0 - 3) Urine Microscopic WBC 11 /HPF (0-3) Urine Squamous Epithelial Cells None seen /hpf (<5) Urine Bacteria None seen /hpf (None Seen) Urine Hyaline Casts Few /lpf (0 - 2) Urine Mucus Few (None Seen) Urine Glucose Normal mg/dL (Normal) Urine Opiates Screen Neg (NEGATIVE) Urine Fentanyl Screen Neg (NEGATIVE) Urine Barbiturates Screen Neg (NEGATIVE) Urine Phencyclidine Screen Neg (NEGATIVE) Urine Amphetamines Screen Pos (NEGATIVE) Urine Benzodiazepines Screen Neg (NEGATIVE) Urine Cocaine Screen Neg (NEGATIVE) Urine Cannabinoids Screen Neg (NEGATIVE) Prothrombin Time 11.4 sec (9.3-11.8) Prothrombin Time INR 1.08 (0.9-1.15) Activated Partial Thromboplast Time 30.4 SEC (24.5-34.5) Troponin I High Sensitivity 11 ng/L (</=54) Test 05/02/24 21:42 Lactic Acid Level 1.4 mmol/L (0.4-2.0) B-Type Natriuretic Peptide 78.59 pg/mL (0-100) Other Laboratory Tests 05/06/24 05:42 05/04/24 06:59 Brief Hx & Hospital Course: HPI : 63-year-old male with past medical history of depression, schizophrenia, and anxiety presented to [facility] ED with granddaughter for evaluation of wound check..Granddaughter claims that she takes care of the patient, despite the patient wandering off all the time. She last saw the patient at [facility], and was surprised why the patient had a g-tube inserted. Patient pulled out the g-tube earlier and patient was brought to [facility]. However, they couldn't take care of the patients issues with the g-tube and was advised to go seek help somewhere else. Both granddaughter and patient are very poor historians. hospital course: brought in for concern for Gtube unintentional removal. Paitnet is chronicaly demented. on admit patient is febrile 101, with leukocytosis 12.3, absolute neutophils high 9.4, with mild transaminitis in 40s, Cr 1.09 wnl, flu covid neg, ua sg 1.016 nl (unconcerning UA, no UTI), PT INR nl (normal liver functions), cxr concerning for COPD with hyperexpansion and diffuse interstitial prominence at lungs ddx fibrosis/scarring, atypical infection. CT head negative. few eposodes of hypotension during stay. ammonia, tsh wnl. b12 high, folic wnl, vit D nl. b1 level pending. given b1 injn, folate po. mutlivitmain daily started. started on vanc/cefepime as concern for infectoin pneumonia and/or urine, respiratory being more likely. paitnet initially non-interactive nonverbal but slowly starts improving. FURNACE HAND rec puree diet. PT recommend acute PT rehab in SNF facility. psych consulted as olanzepine started. Resversible cause likley infection and/or malnutrition/vitamin deficiency. 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 high protein ensure supplement 2x/day. - Continue daily multivitamin. start olanzepine 10mg daily. - continue other medications. - outpatient follow-up with GI to ensure good healing of removed GI tube. - outpatient follow-up with PCP, psychiatry and neurology Condition at Discharge: Fair Final Diagnosis/Problems List acute on chronic toxic metabolic encephalopathy due to infection and/or psychosis and/or dementia sepsis due like likly pulmonary, urinary, GI source chronic dementia likely history of schizophrenia unspecified psychotic disorder s/p PEG tube insertioned, uninteionalled removal by patient PO intolerance resolving physical deconditioning dementia, possible, unknown chronicity severe malnutritioned cachecia aspiration risk leukocytosis, neutrophilia febrile illness Hx meth abuse Discharge Disposition: Detention Facility Discharge Statement: "Patient was advised to return to the ER or call 911 if any headaches, dizziness, shortness of breath, chest pain, abdominal pain, bleeding, fevers, or worsening of medical condition. Patient was counseled about treatment plan, medications, possible side effects, patientverbalized understanding. All questions were answered to the best of my ability. This discharge took greater then 30 minutes in planning, reviewing documentation, counseling the patient, and discussing with other team members." ASSESSMENT ASSESSMENT Assessment Date of Service: May 06, 2024 Billing Provider: MARYJO QUINONEZ MD Common Visit Codes: [id number]-GUJ/[id number] DISCH DAY >30min MARYJO QUINONEZ MD May 06, 2024 14:10
[2024-05-06 17:00] VITALS: BP 94/58; PULSE 93; RESP 16; TEMP 98; O2SAT 94
[2024-05-06] MEDS: VANCOMYCIN 1GM/250ML KIT 250 ML IV ONE (17:17)
[2024-05-06 19:00] VITALS: BP 101/52; PULSE 59; RESP 17; TEMP 97.5; O2SAT 94
[2024-05-06 20:00] VITALS: PULSE 59; RESP 17; O2SAT 94
[2024-05-07] VITALS (7 sets, daily range): BP systolic 117–134; BP diastolic 62–74; PULSE 60–80; RESP 16–19; TEMP 97.8–98.2; O2SAT 94–96
[2024-05-07 06:40] LABS: Basophils # (auto) 0 10 ^3/uL (0-0.2); Basophils % (auto) 0.4 % (0.0-2.0); Eosinophils # (auto) 0.2 10 ^3/uL (0-0.8); Eosinophils % (auto) 2.5 % (0.0-7.0); Hematocrit 29.2 % (41.0-53.0); Hemoglobin 9.7 g/dL (13.5-17.5); Lymphocytes # (auto) 2.4 10 ^3/uL (0.4-5.4); Lymphocytes % (auto) 34.6 % (10.0-50.0); Mean Corpuscular Hemoglobin 30.2 pg (28.0-32.0); Mean Corpuscular Volume 91.5 fL (80.0-100.0); Monocytes # (auto) 0.6 10 ^3/uL (0-1.3); Monocytes % (auto) 9.2 % (0.0-12.0); Neutrophils # (auto) 3.7 10 ^3/uL (1.6-8.6); Neutrophils % (auto) 53.3 % (37.0-80.0); Platelet Count (auto) 219 10^3/uL (140-450); Red Blood Cells 3.19 10^6/uL (4.5-5.90); Red Cell Distribution Width 18.5 % (11.8-14.3)
--- NOTE | 2024-05-07 14:42 | DVHPN2 ---
Subjective update 05/07 05/03 - very cachectic, malnutritioned appearing. appears 20-30 years older than he is. unclear cause or chronicity of this condition. very poor prognosis. peg tube in for unkonwn reasons, will need records. appears family doesnt know alot of info on medical conditions and/or status and/or prognosis. febrile episodes occuring. ?homeless. 05/05 - patient more awake and alrt today. walking to bathroom with assstance. expecting to work with PT. AOx1 only. talks very low voice . 05/06 - doing well. moving more now. more awake and alert. ready for DC to SNF for acute PT rehab 05/07 - social continues to work to find placement for SNF for PT rehab. patient remains at baseline. Reviewed: Care Plan, H&P Changes from previous H/P or p: No Changes General: Per HPI Gastrointestinal: Other (Dislodged G-tube) Skin: Other (Wound) Objective Vitals Vital Signs Date Time Temp Pulse Resp B/P (MAP) Pulse Ox O2 Delivery O2 Flow Rate FiO2 05/07/24 09:00 97.9 80 17 119/62 (81) 96 97.9 05/06/24 20:00 Room Air* 0 21 Intake/Output Intake and Output 05/07/24 07:00 Intake Total 2772.5 ml Output Total 1925 ml Balance 847.5 ml Intake Oral 1800 ml IV Total 972.5 ml Output Urine Total 1925 ml # Bowel Movements 1 Exam chacectic, anorexiic, manutritioned, , distant breath sounds, minimal alertness, but vitals stable. brath sopunds present in all mays, BS present, s1s2. Medications Current Medications Medications Dose Ordered Sig/Katie Route Start Time Stop Time Status Last Admin Dose Admin Cefepime HCl 50 ml @ 12.5 mls/hr Q12HR@0100,1300 IV 05/03/24 13:00 05/07/24 00:50 12.5 MLS/HR Vancomycin HCl 0 ml @ 0 mls/hr UD IV 05/03/24 05:30 Lorazepam 1 mg Q8HP PRN IV 05/03/24 05:30 05/03/24 08:30 1 MG Ibuprofen 600 mg Q6HP PRN PO 05/03/24 05:30 Sodium Chloride 1,000 ml @ 60 mls/hr [id number] IV 05/03/24 05:30 05/06/24 16:53 60 MLS/HR Acetaminophen/ Hydrocodone Bitart 1 tab Q4HP PRN PO 05/03/24 05:30 Ondansetron HCl 4 mg Q4HP PRN IV 05/03/24 05:30 Docusate Sodium 100 mg BIDPRN PRN PO 05/03/24 05:30 Zinc Sulfate 220 mg DAILY PO 05/03/24 10:00 05/07/24 12:03 220 MG Ascorbic Acid 500 mg BID PO 05/03/24 10:00 05/07/24 12:02 500 MG Nitroglycerin 0.4 mg Q5MINP PRN SL 05/03/24 05:30 Morphine Sulfate 2 mg Q30M PRN IV 05/03/24 05:30 05/03/24 09:40 2 MG Olanzapine 10 mg DAILY PO 05/04/24 10:00 05/07/24 12:03 10 MG Folic Acid 1 mg/ Multivitamins 10 ml/Magnesium Sulfate 8 meq/ Thiamine HCl 100 mg/Dextrose 1,013.2 ml @ 125.001 mls/hr DAILY@1800 INJ 05/04/24 18:00 05/06/24 18:20 125.001 MLS/HR Azithromycin 250 ml @ 125 mls/hr DAILY IV 05/05/24 10:00 05/07/24 12:22 125 MLS/HR Vancomycin HCl 250 ml @ 250 mls/hr DAILY@1700 IV 05/07/24 17:00 Laboratory Results Laboratory Tests 05/06/24 05:42 05/07/24 06:04 Urinalysis Test 05/04/24 04:10 Urine Color Light-yellow (Yellow) Urine Clarity Clear (Clear) Urine pH 5.0 (5.0-9.0) Urine Specific [place] 1.016 (1.001-1.035) Urine Protein Negative (Negative) Urine Ketones Trace (Negative) Urine Blood Negative /uL (Negative) Urine Nitrite Negative (Negative) Urine Bilirubin Negative (Negative) Urine Urobilinogen Normal mg/dL (Negative) Urine Leukocyte Esterase Trace /uL (Negative) Urine RBC 1 /hpf (0 - 3) Urine Microscopic WBC 11 /HPF (0-3) H Urine Squamous Epithelial Cells None seen /hpf (<5) Urine Bacteria None seen /hpf (None Seen) Urine Hyaline Casts Few /lpf (0 - 2) Urine Mucus Few (None Seen) Urine Glucose Normal mg/dL (Normal) Microbiology Microbiology Date/Time Source Procedure Growth Status 05/04/24 09:40 Nose MRSA Screen - Final Complete 05/02/24 21:48 Blood Blood Culture - Preliminary NO GROWTH AFTER 72 HOURS OF INCUBATION. Resulted Labs and/or images reviewed: Labs reviewed by me, Image(s) reviewed by me Assessment/Plan Assessment/Plan 05/07 - social continues to work to find placement for SNF for PT rehab. patient remains at baseline. acute on chronic encephalopathy s/p PEG tube insertioned, uninteionalled removed by patient sepsis due like likly pulmonary versus urinary vs GI source leukocytosis, neutrophilia febrile illness dementia, possible, unknown chronicity severe malnutritioned cachecia Hx meth abuse ?homelessness -work-up joey far unremarkable - conitnue broad spectrum abx - olaznepinr for agitation and telepsych consult. as need ativan/haldol per hospitalistt - ekg to eval qtc prn. - social consult for SNF. - PT eval. rec SNF - [facility] puree [facility] (vs npo if aspirating) lovenox prootnox iv medsurg full code Plan discussed with: Other Date of Service: May 07, 2024 Billing Provider: MARYJO QUINONEZ MD Common Visit Codes: [id number] INP/OBS CARE(HIGH) MARYJO QUINONEZ MD May 07, 2024 14:42
[2024-05-07] MEDS: CEFEPIME 1GM/ 50ML 50 ML IV SCH (14:53)
[2024-05-07] MEDS: VANCOMYCIN 1GM/250ML KIT 250 ML IV ONE (17:21)
[2024-05-07] MEDS: VANCOMYCIN 1GM/250ML KIT 250 ML IV SCH (17:21)
[2024-05-08 01:00] VITALS: BP 134/58; PULSE 58; RESP 17; TEMP 98; O2SAT 96
[2024-05-08 05:00] VITALS: BP 132/56; PULSE 55; RESP 17; TEMP 98.9; O2SAT 97
[2024-05-08 09:00] VITALS: BP 113/61; PULSE 69; RESP 16; TEMP 98.6; O2SAT 96
[2024-05-08 13:00] VITALS: BP 106/58; PULSE 68; RESP 16; TEMP 97.9; O2SAT 93
--- NOTE | 2024-05-08 14:39 | DVHPN2 ---
Subjective update 05/08 05/03 - very cachectic, malnutritioned appearing. appears 20-30 years older than he is. unclear cause or chronicity of this condition. very poor prognosis. peg tube in for unkonwn reasons, will need records. appears family doesnt know alot of info on medical conditions and/or status and/or prognosis. febrile episodes occuring. ?homeless. 05/05 - patient more awake and alrt today. walking to bathroom with assstance. expecting to work with PT. AOx1 only. talks very low voice . 05/06 - doing well. moving more now. more awake and alert. ready for DC to SNF for acute PT rehab 05/07 - social continues to work to find placement for SNF for PT rehab. patient remains at baseline. \ 05/08 waiting for SNF placement for PT. remains AOx1 but following commands, tolerating PO, ambulate with assist to bathroom. Reviewed: Care Plan, H&P Changes from previous H/P or p: No Changes General: Per HPI Gastrointestinal: Other (Dislodged G-tube) Skin: Other (Wound) Objective Vitals Vital Signs Date Time Temp Pulse Resp B/P (MAP) Pulse Ox O2 Delivery O2 Flow Rate FiO2 05/08/24 09:00 98.6 69 16 113/61 (78) 96 98.6 05/07/24 20:00 Room Air* 0 21 Intake/Output Intake and Output 05/08/24 07:00 Intake Total 3132 ml Output Total 2650 ml Balance 482 ml Intake Oral 1782 ml IV Total 1350 ml Output Urine Total 2650 ml Exam chacectic, anorexiic, manutritioned, , distant breath sounds, minimal alertness, but vitals stable. brath sopunds present in all mays, BS present, s1s2. Medications Current Medications Medications Dose Ordered Sig/Katie Route Start Time Stop Time Status Last Admin Dose Admin Vancomycin HCl 0 ml @ 0 mls/hr UD IV 05/03/24 05:30 Lorazepam 1 mg Q8HP PRN IV 05/03/24 05:30 05/03/24 08:30 1 MG Ibuprofen 600 mg Q6HP PRN PO 05/03/24 05:30 Sodium Chloride 1,000 ml @ 60 mls/hr [id number] IV 05/03/24 05:30 05/06/24 16:53 60 MLS/HR Acetaminophen/ Hydrocodone Bitart 1 tab Q4HP PRN PO 05/03/24 05:30 Ondansetron HCl 4 mg Q4HP PRN IV 05/03/24 05:30 Docusate Sodium 100 mg BIDPRN PRN PO 05/03/24 05:30 Zinc Sulfate 220 mg DAILY PO 05/03/24 10:00 05/08/24 10:54 220 MG Ascorbic Acid 500 mg BID PO 05/03/24 10:00 05/08/24 10:54 500 MG Nitroglycerin 0.4 mg Q5MINP PRN SL 05/03/24 05:30 Morphine Sulfate 2 mg Q30M PRN IV 05/03/24 05:30 05/03/24 09:40 2 MG Olanzapine 10 mg DAILY PO 05/04/24 10:00 05/08/24 10:55 10 MG Folic Acid 1 mg/ Multivitamins 10 ml/Magnesium Sulfate 8 meq/ Thiamine HCl 100 mg/Dextrose 1,013.2 ml @ 125.001 mls/hr DAILY@1800 INJ 05/04/24 18:00 05/07/24 19:02 125.001 MLS/HR Azithromycin 250 ml @ 125 mls/hr DAILY IV 05/05/24 10:00 05/08/24 10:59 125 MLS/HR Vancomycin HCl 250 ml @ 250 mls/hr DAILY@1700 IV 05/07/24 17:00 05/07/24 17:21 250 MLS/HR Cefepime HCl 50 ml @ 12.5 mls/hr Q12HR@0300,1500 IV 05/07/24 15:00 05/08/24 02:57 12.5 MLS/HR Laboratory Results Laboratory Tests 05/06/24 05:42 05/07/24 06:04 05/08/24 06:11 Urinalysis Test 05/04/24 04:10 Urine Color Light-yellow (Yellow) Urine Clarity Clear (Clear) Urine pH 5.0 (5.0-9.0) Urine Specific [place] 1.016 (1.001-1.035) Urine Protein Negative (Negative) Urine Ketones Trace (Negative) Urine Blood Negative /uL (Negative) Urine Nitrite Negative (Negative) Urine Bilirubin Negative (Negative) Urine Urobilinogen Normal mg/dL (Negative) Urine Leukocyte Esterase Trace /uL (Negative) Urine RBC 1 /hpf (0 - 3) Urine Microscopic WBC 11 /HPF (0-3) H Urine Squamous Epithelial Cells None seen /hpf (<5) Urine Bacteria None seen /hpf (None Seen) Urine Hyaline Casts Few /lpf (0 - 2) Urine Mucus Few (None Seen) Urine Glucose Normal mg/dL (Normal) Microbiology Microbiology Date/Time Source Procedure Growth Status 05/04/24 09:40 Nose MRSA Screen - Final Complete 05/02/24 21:48 Blood Blood Culture - Final NO GROWTH AFTER 5 DAYS OF INCUBATION. Complete Labs and/or images reviewed: Labs reviewed by me, Image(s) reviewed by me Assessment/Plan Assessment/Plan 05/08 waiting for SNF placement for PT. remains AOx1 but following commands, tolerating PO, ambulate with assist to bathroom. acute on chronic encephalopathy s/p PEG tube insertioned, unintentionally removed by patient sepsis due like likly pulmonary versus urinary vs GI source leukocytosis, neutrophilia febrile illness likely dementia, possible, unknown chronicity severe malnutrition cachecia Hx meth abuse - work-up thus far unremarkable - stop broad spectrum abx (vanc cefepime azithro) - olaznepinr for agitation and telepsych consult. as need ativan/haldol per hospitalist - ekg to eval qtc prn - social consult for SNF - PT eval. rec SNF - [facility] puree [facility]D (vs npo if aspirating) lovenox protonix iv medsurg full code Plan discussed with: Other Date of Service: May 08, 2024 Billing Provider: MARYJO QUINONEZ MD Common Visit Codes: [id number] INP/OBS CARE(HIGH) MARYJO QUINONEZ MD May 08, 2024 14:39
[2024-05-08 17:00] VITALS: BP 123/64; PULSE 58; RESP 16; TEMP 98.6; O2SAT 95
[2024-05-08] MEDS: Ensure HIGH Protein Chocolate 8oz Bottle PO SCH (18:07)
[2024-05-08] MEDS: MAGNESIUM OXIDE 400 MG TAB PO ONE (18:09)
[2024-05-08] MEDS: MULTIPLE VITAMIN TAB PO ONE (18:09)
[2024-05-08] MEDS: FOLIC ACID 1 MG TAB PO ONE (18:09)
[2024-05-08] MEDS: THIAMINE HCL 100 MG TAB PO ONE (18:10)
[2024-05-08 20:00] VITALS: RESP 16
[2024-05-09 01:00] VITALS: BP 146/62; PULSE 65; RESP 16; TEMP 98.1; O2SAT 96
[2024-05-09 09:00] VITALS: BP 153/81; PULSE 94; RESP 17; TEMP 98; O2SAT 96
[2024-05-09] MEDS: THIAMINE HCL 100 MG TAB PO SCH (09:34)
[2024-05-09] MEDS: MAGNESIUM OXIDE 400 MG TAB PO SCH (09:35)
[2024-05-09] MEDS: MULTIPLE VITAMIN TAB PO SCH (09:35)
[2024-05-09] MEDS: FOLIC ACID 1 MG TAB PO SCH (09:40)
[2024-05-09 13:10] VITALS: BP 106/59; PULSE 102; RESP 18; TEMP 97.9; O2SAT 96
[2024-05-09] MEDS ORDERED: OLAN1TAB19 PO (14:54)
--- NOTE | 2024-05-09 15:02 | DVHDS2 ---
Discharge Summary Date of Admission May 03, 2024 at 05:27 Date of Discharge: May 06, 2024 Labs/Diagnostic Data: Laboratory Results Test 05/08/24 06:11 05/07/24 06:04 05/06/24 05:42 05/05/24 01:40 Creatinine 0.77 mg/dL (0.700-1.30) Glomerular Filtration Rate Calc 101 mL/min (>90) White Blood Count 7.0 10^3/uL (4.4-10.8) Red Blood Count 3.19 10^6/uL (4.5-5.90) Hemoglobin 9.7 g/dL (13.5-17.5) Hematocrit 29.2 % (41.0-53.0) Mean Corpuscular Volume 91.5 fL (80.0-100.0) Mean Corpuscular Hemoglobin 30.2 pg (28.0-32.0) Mean Corpuscular Hemoglobin Concent 33.0 g/dL (32.0-36.0) Red Cell Distribution Width 18.5 % (11.8-14.3) Platelet Count 219 10^3/uL (140-450) Mean Platelet Volume 6.6 fL (6.9-10.8) Neutrophils (%) (Auto) 53.3 % (37.0-80.0) Lymphocytes (%) (Auto) 34.6 % (10.0-50.0) Monocytes (%) (Auto) 9.2 % (0.0-12.0) Eosinophils (%) (Auto) 2.5 % (0.0-7.0) Basophils (%) (Auto) 0.4 % (0.0-2.0) Neutrophils # (Auto) 3.7 10 ^3/uL (1.6-8.6) Lymphocytes # (Auto) 2.4 10 ^3/uL (0.4-5.4) Monocytes # (Auto) 0.6 10 ^3/uL (0-1.3) Eosinophils # (Auto) 0.2 10 ^3/uL (0-0.8) Basophils # (Auto) 0 10 ^3/uL (0-0.2) Nucleated Red Blood Cells 0.0 % Random Vancomycin Level 17.7 ug/mL (5-10) Sodium Level 138 mmol/L (136-145) Potassium Level 4.1 mmol/L (3.5-5.1) Chloride Level 109 mmol/L (98-107) Carbon Dioxide Level 22 mmol/L (20-31) Anion Gap 7 (5-15) Blood Urea Nitrogen 12 mg/dL (9-23) BUN/Creatinine Ratio 15.2 (10.0-20.0) Serum Glucose 95 mg/dL (74-106) Calcium Level 9.6 mg/dL (8.7-10.4) Influenza Type A Antigen Negative (Negative) Influenza Type B Antigen Negative (Negative) SARS-CoV-2 Antigen (Rapid) Negative (NEGATIVE) Test 05/04/24 21:00 05/04/24 11:36 05/04/24 06:59 05/04/24 04:10 Vancomycin Level Trough 31.1 ug/mL (5-10) Ammonia 25 umol/L (11-32) Vitamin B12 Level 964 pg/mL (211-911) Vitamin D 25-Hydroxy 43.7 ng/mL (30.0-100) Folic Acid 15.34 ng/mL (>5.38) Magnesium Level 1.9 mg/dL (1.6-2.6) Total Bilirubin 0.4 mg/dL (0.2-1.0) Aspartate Amino Transferase (AST) 30 U/L (13-40) Alanine Aminotransferase (ALT) 29 U/L (7-40) Alkaline Phosphatase 82 U/L (46-116) Total Protein 5.9 g/dL (5.7-8.2) Albumin 3.2 g/dL (3.2-4.8) Urine Color Light-yellow (Yellow) Urine Clarity Clear (Clear) Urine pH 5.0 (5.0-9.0) Urine Specific [place] 1.016 (1.001-1.035) Urine Protein Negative (Negative) Urine Ketones Trace (Negative) Urine Blood Negative /uL (Negative) Urine Nitrite Negative (Negative) Urine Bilirubin Negative (Negative) Urine Urobilinogen Normal mg/dL (Negative) Urine Leukocyte Esterase Trace /uL (Negative) Urine RBC 1 /hpf (0 - 3) Urine Microscopic WBC 11 /HPF (0-3) Urine Squamous Epithelial Cells None seen /hpf (<5) Urine Bacteria None seen /hpf (None Seen) Urine Hyaline Casts Few /lpf (0 - 2) Urine Mucus Few (None Seen) Urine Glucose Normal mg/dL (Normal) Urine Opiates Screen Neg (NEGATIVE) Urine Fentanyl Screen Neg (NEGATIVE) Urine Barbiturates Screen Neg (NEGATIVE) Urine Phencyclidine Screen Neg (NEGATIVE) Urine Amphetamines Screen Pos (NEGATIVE) Urine Benzodiazepines Screen Neg (NEGATIVE) Urine Cocaine Screen Neg (NEGATIVE) Urine Cannabinoids Screen Neg (NEGATIVE) Test 05/03/24 10:00 05/03/24 00:15 05/02/24 21:42 Prothrombin Time 11.4 sec (9.3-11.8) Prothrombin Time INR 1.08 (0.9-1.15) Activated Partial Thromboplast Time 30.4 SEC (24.5-34.5) Troponin I High Sensitivity 11 ng/L (</=54) Lactic Acid Level 1.4 mmol/L (0.4-2.0) B-Type Natriuretic Peptide 78.59 pg/mL (0-100) Other Laboratory Tests 05/08/24 06:11 05/07/24 06:04 05/06/24 05:42 Brief Hx & Hospital Course: HPI : 63-year-old male with past medical history of depression, schizophrenia, and anxiety presented to [facility] ED with granddaughter for evaluation of wound check..Granddaughter claims that she takes care of the patient, despite the patient wandering off all the time. She last saw the patient at [facility], and was surprised why the patient had a g-tube inserted. Patient pulled out the g-tube earlier and patient was brought to [facility]. However, they couldn't take care of the patients issues with the g-tube and was advised to go seek help somewhere else. Both granddaughter and patient are very poor historians. hospital course: brought in for concern for Gtube unintentional removal. Paitnet is chronicaly demented. on admit patient is febrile 101, with leukocytosis 12.3, absolute neutophils high 9.4, with mild transaminitis in 40s, Cr 1.09 wnl, flu covid neg, ua sg 1.016 nl (unconcerning UA, no UTI), PT INR nl (normal liver functions), cxr concerning for COPD with hyperexpansion and diffuse interstitial prominence at lungs ddx fibrosis/scarring, atypical infection. CT head negative. few eposodes of hypotension during stay. ammonia, tsh wnl. b12 high, folic wnl, vit D nl. b1 level pending. given b1 injn, folate po. mutlivitmain daily started. started on vanc/cefepime as concern for infectoin pneumonia and/or urine, respiratory being more likely. paitnet initially non-interactive nonverbal but slowly starts improving. [employer] rec puree diet. PT initially recommend acute PT rehab in SNF facility but patient continues to improve and is ambulating without assist. psych consulted as olanzepine started. Resversible cause likley infection and/or malnutrition/vitamin deficiency. plan made for discharge as below: diagnosis: acute toxic metabolic encephalopathy due to infection sepsis due likely GI source s/p PEG tube insertioned, unintentional removed by patient unspecified psychotic disorder history of schizophrenia leukocytosis, neutrophilia febrile illness aspiration risk, resolving PO intolerance resolving physical deconditioning dementia, likely, unknown chronicity severe malnutritioned cachecia History meth abuse discharge plan: - adequate improvement in ambulation. discharge home with [facility] medication management, home physical therapy and home safety evaluation. - puree diet only. high protein ensure supplement 2x/day. - Continue daily multivitamin. start olanzepine 10mg daily. - continue other medications. - outpatient follow-up with GI to ensure good healing of removed GI tube. - outpatient follow-up with PCP, psychiatry and neurology. Condition at Discharge: Fair Final Diagnosis/Problems List acute toxic metabolic encephalopathy due to infection sepsis due likely GI source s/p PEG tube insertioned, unintentional removed by patient unspecified psychotic disorder history of schizophrenia leukocytosis, neutrophilia febrile illness aspiration risk, resolving PO intolerance resolving physical deconditioning dementia, likely, unknown chronicity severe malnutritioned cachecia History meth abuse Discharge Disposition: Home Discharge Instruct/Medications Diet: Regular Activity: No Restrictions, As Tolerated Follow Up/Referral: - outpatient follow-up with GI to ensure good healing of removed GI tube. - outpatient follow-up with PCP, psychiatry and neurology. Medications: below Discharge Statement: "Patient was advised to return to the ER or call 911 if any headaches, dizziness, shortness of breath, chest pain, abdominal pain, bleeding, fevers, or worsening of medical condition. Patient was counseled about treatment plan, medications, possible side effects, patientverbalized understanding. All questions were answered to the best of my ability. This discharge took greater then 30 minutes in planning, reviewing documentation, counseling the patient, and discussing with other team members." ASSESSMENT ASSESSMENT Assessment acute toxic metabolic encephalopathy due to infection sepsis due likely GI source s/p PEG tube insertioned, unintentional removed by patient unspecified psychotic disorder history of schizophrenia leukocytosis, neutrophilia febrile illness aspiration risk, resolving PO intolerance resolving physical deconditioning dementia, likely, unknown chronicity severe malnutritioned cachecia History meth abuse Date of Service: May 09, 2024 Billing Provider: MARYJO QUINONEZ MD Common Visit Codes: [id number] DISCH DAY >30min MARYJO QUINONEZ MD May 09, 2024 15:02
[2024-05-09 17:00] VITALS: BP 128/65; PULSE 67; RESP 16; TEMP 98.7; O2SAT 96
[2024-05-09 20:00] VITALS: PULSE 77; RESP 19; O2SAT 96
[2024-05-09 21:00] VITALS: BP 103/57; PULSE 77; RESP 19; TEMP 98.7; O2SAT 96
[2024-05-10] VITALS (7 sets, daily range): BP systolic 100–117; BP diastolic 53–78; PULSE 60–75; RESP 16–19; TEMP 36.4; O2SAT 96–98
--- NOTE | 2024-05-10 12:12 | DVHPN2 ---
Reviewed: Care Plan, H&P Changes from previous H/P or p: No Changes General: Per HPI Gastrointestinal: Other (Dislodged G-tube) Skin: Other (Wound) Objective Vitals Vital Signs Date Time Temp Pulse Resp B/P (MAP) Pulse Ox O2 Delivery O2 Flow Rate FiO2 05/10/24 09:00 98.2 71 18 117/78 (91) 98 98.2 05/10/24 08:20 Room Air* 0 21 Intake/Output Intake and Output 05/10/24 07:00 Intake Total 2314 ml Output Total 725 ml Balance 1589 ml Intake Oral 1594 ml IV Total 720 ml Output Urine Total 725 ml # Voids 11 # Bowel Movements 4 Medications Current Medications Medications Dose Ordered Sig/Katie Route Start Time Stop Time Status Last Admin Dose Admin Lorazepam 1 mg Q8HP PRN IV 05/03/24 05:30 05/09/24 16:55 1 MG Ibuprofen 600 mg Q6HP PRN PO 05/03/24 05:30 Sodium Chloride 1,000 ml @ 60 mls/hr [id number] IV 05/03/24 05:30 05/10/24 04:03 60 MLS/HR Acetaminophen/ Hydrocodone Bitart 1 tab Q4HP PRN PO 05/03/24 05:30 Ondansetron HCl 4 mg Q4HP PRN IV 05/03/24 05:30 Docusate Sodium 100 mg BIDPRN PRN PO 05/03/24 05:30 Zinc Sulfate 220 mg DAILY PO 05/03/24 10:00 05/10/24 11:21 220 MG Ascorbic Acid 500 mg BID PO 05/03/24 10:00 05/10/24 11:21 500 MG Nitroglycerin 0.4 mg Q5MINP PRN SL 05/03/24 05:30 Morphine Sulfate 2 mg Q30M PRN IV 05/03/24 05:30 05/03/24 09:40 2 MG Olanzapine 10 mg DAILY PO 05/04/24 10:00 05/10/24 11:20 10 MG Enteral Nutritional Formula 240 ml BIDWM PO 05/08/24 18:00 05/10/24 11:27 240 ML Folic Acid 1 mg DAILY PO 05/09/24 10:00 05/10/24 11:20 1 MG Multivitamins 1 tab DAILY PO 05/09/24 10:00 05/10/24 11:21 1 TAB Magnesium Oxide 400 mg DAILY PO 05/09/24 10:00 05/10/24 11:21 400 MG Thiamine HCl 100 mg DAILY PO 05/09/24 10:00 05/10/24 11:21 100 MG Laboratory Results Laboratory Tests 05/06/24 05:42 05/07/24 06:04 05/08/24 06:11 Urinalysis Test 05/04/24 04:10 Urine Color Light-yellow (Yellow) Urine Clarity Clear (Clear) Urine pH 5.0 (5.0-9.0) Urine Specific [place] 1.016 (1.001-1.035) Urine Protein Negative (Negative) Urine Ketones Trace (Negative) Urine Blood Negative /uL (Negative) Urine Nitrite Negative (Negative) Urine Bilirubin Negative (Negative) Urine Urobilinogen Normal mg/dL (Negative) Urine Leukocyte Esterase Trace /uL (Negative) Urine RBC 1 /hpf (0 - 3) Urine Microscopic WBC 11 /HPF (0-3) H Urine Squamous Epithelial Cells None seen /hpf (<5) Urine Bacteria None seen /hpf (None Seen) Urine Hyaline Casts Few /lpf (0 - 2) Urine Mucus Few (None Seen) Urine Glucose Normal mg/dL (Normal) Microbiology Microbiology Date/Time Source Procedure Growth Status 05/04/24 09:40 Nose MRSA Screen - Final Complete 05/02/24 21:48 Blood Blood Culture - Final NO GROWTH AFTER 5 DAYS OF INCUBATION. Complete Labs and/or images reviewed: Labs reviewed by me, Image(s) reviewed by me Assessment/Plan Assessment/Plan Covering For Dr. Giron acute toxic metabolic encephalopathy due to infection sepsis due likely GI source s/p PEG tube insertioned, unintentional removed by patient unspecified psychotic disorder history of schizophrenia leukocytosis, neutrophilia febrile illness aspiration risk, resolving PO intolerance resolving physical deconditioning dementia, likely, unknown chronicity severe malnutritioned cachecia History meth abuse Patient was discharged on 05/09/2024 Awaiting home health arrangements Plan discussed with: Patient Date of Service: May 10, 2024 Billing Provider: EVERARDO BROOKS MD Common Visit Codes: [id number] INP/OBS CARE(HIGH) EVERARDO BROOKS MD May 10, 2024 12:12
[2024-05-10 15:06] LABS: Vitamin B1, Whole Blood 94.5 nmol/L (66.5-200.0)
== END 2024-05-10 16:30 | disposition home health service (06) | DRG 720 ==
LOC: ER 20:56 → OVERFLOW 05-03 05:27 → WEST WING 05-03 14:44
PROVIDERS: ADMIT Nurse Practitioner Family; ATTEND Student in an Organized Health Care Education/Training Program
DX: A41.9 Sepsis, unspecified organism (principal); G92.8 Other toxic encephalopathy; R64 Cachexia; E43 Unspecified severe protein-calorie malnutrition; F20.0 Paranoid schizophrenia; K94.23 Gastrostomy malfunction; Z20.822 Contact with and (suspected) exposure to COVID-19; F03.90 Unspecified dementia, unspecified severity, without behavioral disturbance, psychotic disturbance, mood disturbance, and anxiety; F15.90 Other stimulant use, unspecified, uncomplicated; F17.210 Nicotine dependence, cigarettes, uncomplicated; Z59.00 Homelessness unspecified; Z91.51 Personal history of suicidal behavior; Z68.1 Body mass index [BMI] 19.9 or less, adult; Z79.899 Other long term (current) drug therapy; Y84.8 Other medical procedures as the cause of abnormal reaction of the patient, or of later complication, without mention of misadventure at the time of the procedure; Y92.89 Other specified places as the place of occurrence of the external cause
CPT/HCPCS: 36415; 70450; 71045; 80048; 80053; 80202; 80307; 81001; 82140; 82306; 82565; 82607; 82746; 83605; 83735; 83880; 84425; 84484; 85025; 85610; 85730; 87040; 87081; 87426; 87804; 92610; 97110; 97116; 97163; 97530; 99291; G0378; J0692